=== PATIENT | male | born 1975 | race Caucasian/White ===

== ENCOUNTER → 2021-04-24 | Outpatient (CLI) | payer OTHER ==
[~2021-04-24] MED LIST: ALPR1 PO; AMLO5 PO; Ativan1 MG PO; CARV6.25 PO; CITA20 PO; CRUTCH3 USE; CYCL10 PO; Crutch1 EACH MISC; ERYT.5TO LEFTEYE; FLUT.05NI; HYDACE10B PO; HYDACE5 PO; HYDCHL25 PO; HYDPAM25 PO; IBUP800 PO; Indomethacin50 MG PO; Keflex500 MG PO; LISI20 PO; LITH300C PO; LORA.5 PO; LORA2 PO; LOSHYD100 PO; MELO7.5; METPRE4DP PO; Mobic7.5 MG PO; NAPR500 PO; NAPR500ERA PO; Naprosyn500 MG PO; Non-Aspirin Ex500 MG PO; Norco 10-325 T1 EACH PO; Norco 5-325 Ta1 EACH PO; OLAN5 PO; OXYACE7.5T PO; PRED20; SUMA25 PO; TELM20 PO; ZESTORETIC 20-121 EA; ZESTORETIC 20-251 EA PO; Zofran4 MG PO
[2021-04-24 15:54] LABS: BASOPHILS ABSOLUTE AUTO 0.09 K/mm3 (0.00-0.23); BASOPHILS PERCENT AUTO 1 % (0-2); EOSINOPHILS PERCENT AUTO 2 % (0-6); Hematocrit 45.4 % (37.0-53.0); Hemoglobin 15.1 g/dL (13.5-17.5); IMMATURE GRAN ABSOLUTE AUTO 0.05 K/mm3 (0.00-0.10); IMMATURE GRAN PERCENT AUTO 0 % (0-1); LYMPHOCYTES ABSOLUTE AUTO 1.88 K/mm3 (0.84-5.20); LYMPHOCYTES PERCENT AUTO 15 % (21-46); MONOCYTES ABSOLUTE AUTO 0.74 K/mm3 (0.16-1.47); MONOCYTES PERCENT AUTO 6 % (4-13); Mean Corpuscular HGB 27.5 pg (26.0-34.0); Mean Corpuscular HGB Conc 33.3 g/dL (31.5-36.5); Mean Corpuscular Volume 83 fL (80-100); Mean Platelet Volume 10.7 fL (9.1-12.4); NEUTROPHILS ABSOLUTE AUTO 9.23 K/mm3 (1.96-9.15); NEUTROPHILS PERCENT AUTO 76 % (41-73); Platelet Count 216 K/mm3 (150-400); RDW Coefficient Variation 14.7 % (11.7-14.2); RDW Standard Deviation 44.2 fL (35.1-46.3); White Blood Cell Count 12.19 K/mm3 (4.00-11.30)
[2021-04-24 16:25] LABS: Albumin, Blood 2.5 g/dL (3.4-5.0); Albumin/Globulin Ratio 0.8 (0.8-1.8); Bilirubin, Total 0.9 mg/dL (0.1-1.0); Bun/Creatinine Ratio 17.8 (12.0-20.0); Calcium, Blood 8.6 mg/dL (8.5-10.1); Creatinine, Blood 1.57 mg/dL (0.60-1.20); Globulin, Blood 3.1 g/dL (2.2-4.0); Potassium, Blood 4.3 mmol/L (3.5-5.5); Total Protein, Blood 5.6 g/dL (6.4-8.2); Troponin I 0.147 ng/mL (0.000-0.040)
[2021-04-24 16:32] LABS: International Normalized Ratio 1.07; Prothrombin Time Results 11.2 Sec (9.7-11.5)
== END | disposition home or self-care (01) ==
LOC: LAB 15:48 → LAB SHORT 15:48
PROVIDERS: Physician Assistant Medical
DX: R06.00 Dyspnea, unspecified (principal)
CPT/HCPCS: 80053; 83880; 84484; 85025; 85379; 85610; 85651; 85730; 86140

== ENCOUNTER 2021-07-05 22:04 | Inpatient (IN) | payer OTHER ==
[~2021-07-05] VITALS: Ht 170.2 cm; Wt 90.7 kg
[2021-07-05 22:39] LABS: BASOPHILS ABSOLUTE AUTO 0.11 K/mm3 (0.00-0.23); BASOPHILS PERCENT AUTO 1 % (0-2); EOSINOPHILS ABSOLUTE AUTO 0.11 K/mm3 (0.00-0.68); EOSINOPHILS PERCENT AUTO 1 % (0-6); Hematocrit 46.9 % (37.0-53.0); Hemoglobin 15.5 g/dL (13.5-17.5); IMMATURE GRAN ABSOLUTE AUTO 0.08 K/mm3 (0.00-0.10); IMMATURE GRAN PERCENT AUTO 1 % (0-1); LYMPHOCYTES ABSOLUTE AUTO 2.29 K/mm3 (0.84-5.20); LYMPHOCYTES PERCENT AUTO 15 % (21-46); MONOCYTES ABSOLUTE AUTO 0.96 K/mm3 (0.16-1.47); MONOCYTES PERCENT AUTO 6 % (4-13); Mean Corpuscular HGB 26.8 pg (26.0-34.0); Mean Corpuscular Volume 81 fL (80-100); Mean Platelet Volume 10.9 fL (9.1-12.4); NEUTROPHILS ABSOLUTE AUTO 11.69 K/mm3 (1.96-9.15); NEUTROPHILS PERCENT AUTO 77 % (41-73); Platelet Count 131 K/mm3 (150-400); RDW Coefficient Variation 22.1 % (11.7-14.2); RDW Standard Deviation 61.6 fL (35.1-46.3); Red Blood Cell Count 5.78 M/mm3 (4.30-5.90); White Blood Cell Count 15.24 K/mm3 (4.00-11.30)
[2021-07-05 22:59] LABS: Albumin, Blood 2.5 g/dL (3.4-5.0); Albumin/Globulin Ratio 0.7 (0.8-1.8); Bilirubin, Total 2.1 mg/dL (0.1-1.0); Calcium, Blood 8.9 mg/dL (8.5-10.1); Creatinine, Blood 1.58 mg/dL (0.60-1.20); Globulin, Blood 3.5 g/dL (2.2-4.0); Potassium, Blood 3.9 mmol/L (3.5-5.5); Troponin I 0.072 ng/mL (0.000-0.040)
[2021-07-05] MEDS ORDERED: COREG25 MG PO (23:24)
[2021-07-05] MEDS ORDERED: JANTOVEN2.5 M2 PO (23:25)
[2021-07-05] MEDS ORDERED: SPIRONOLACTONE50 MG PO (23:25)
[2021-07-05] MEDS ORDERED: FUROSEMIDE40 MG PO (23:25)
[2021-07-06 00:38] LABS: International Normalized Ratio 1.15
[2021-07-06 06:38] LABS: BASOPHILS PERCENT AUTO 1 % (0-2); EOSINOPHILS ABSOLUTE AUTO 0.15 K/mm3 (0.00-0.68); EOSINOPHILS PERCENT AUTO 1 % (0-6); Hematocrit 46.9 % (37.0-53.0); Hemoglobin 15.5 g/dL (13.5-17.5); IMMATURE GRAN ABSOLUTE AUTO 0.07 K/mm3 (0.00-0.10); IMMATURE GRAN PERCENT AUTO 1 % (0-1); LYMPHOCYTES ABSOLUTE AUTO 2.38 K/mm3 (0.84-5.20); LYMPHOCYTES PERCENT AUTO 15 % (21-46); MONOCYTES ABSOLUTE AUTO 0.93 K/mm3 (0.16-1.47); MONOCYTES PERCENT AUTO 6 % (4-13); Mean Corpuscular HGB 27.1 pg (26.0-34.0); Mean Corpuscular Volume 82 fL (80-100); Mean Platelet Volume 10.6 fL (9.1-12.4); NEUTROPHILS PERCENT AUTO 77 % (41-73); Platelet Count 125 K/mm3 (150-400); RDW Coefficient Variation 22.2 % (11.7-14.2); RDW Standard Deviation 63.7 fL (35.1-46.3); Red Blood Cell Count 5.72 M/mm3 (4.30-5.90); White Blood Cell Count 15.53 K/mm3 (4.00-11.30)
--- NOTE | 2021-07-06 06:47 | NUR ---
SHIFT SUMMARY PT IS A&O X4, REPORTS HE IS HOMELESS AND 6 WEEKS AGO WAS DIAGNOSED WITH SYSTOLIC CHF. HE HAS NOT BEEN TAKING HIS MEDICATION X 2 WEEKS, STATES HE HAD TROUBLE KEEPING HIS F/U APPTS. HE IS ROOM AIR. BLOOD PRESSURES HYPERTENSIVE, ADMINISTERED HYDRALAZINE AND METOPROLOL PRN. PT AMBULATES IN ROOM, USING URINAL AT BEDSIDE. HE USES A WALKING STICK AT HOME. REPORTS DECREASED APPETITE X6 DAYS. WILL CONTINUE TO MONITOR AND GIVE REPORT TO DAY NURSE.
[2021-07-06 06:55] LABS: Albumin, Blood 2.4 g/dL (3.4-5.0); Albumin/Globulin Ratio 0.7 (0.8-1.8); Bilirubin, Total 1.7 mg/dL (0.1-1.0); Bun/Creatinine Ratio 19.9 (12.0-20.0); Calcium, Blood 8.7 mg/dL (8.5-10.1); Creatinine, Blood 1.56 mg/dL (0.60-1.20); Globulin, Blood 3.5 g/dL (2.2-4.0); Potassium, Blood 3.8 mmol/L (3.5-5.5); Total Protein, Blood 5.9 g/dL (6.4-8.2)
[2021-07-06 07:08] LABS: Troponin I 0.075 ng/mL (0.000-0.040)
--- NOTE | 2021-07-06 12:38 | NUR ---
ASSUMED CARE: PT TRANSFERRED TO ROOM 304. AWAITING TELE AND HEPARIN GTT. COORDINATER AT BEDSIDE DOING ADMISSION PAPERWORK. PT DENIES NEEDS OR CONCERNS AT THIS TIME.
[2021-07-06 15:25] LABS: Troponin I 0.045 ng/mL (0.000-0.040)
--- NOTE | 2021-07-06 18:33 | NUR ---
SHIFT SUMMARY: PT WITH HEPARIN GTT RUNNING TO BRIDGE FOR COUMADIN TO GET TO THERAPEUTIC LEVELS. PT BEING MEDICALLY MANAGED FOR CHF DUE TO UNAVAILABILITY OF MEDS IN HOME SETTING. PT DENIES NEEDS OR CONCERNS AT THIS TIME.
[2021-07-06 21:58] LABS: U Amphetamine Screen Not Detected; U Barbituate Screen Not Detected; U Benzodiazapine Screen Not Detected; U Buprenorphine Screen Not Detected; U Cannabinoids Screen DETECTED; U Cocaine Screen Not Detected; U Methadone Screen Not Detected; U Methamphetamine Screen Not Detected; U Opiates Screen Not Detected; U Oxycodone Screen Not Detected; U Phencyclidine Screen Not Detected; U Propoxyphene Screen Not Detected
[2021-07-07 05:04] LABS: BASOPHILS ABSOLUTE AUTO 0.09 K/mm3 (0.00-0.23); BASOPHILS PERCENT AUTO 1 % (0-2); EOSINOPHILS ABSOLUTE AUTO 0.34 K/mm3 (0.00-0.68); EOSINOPHILS PERCENT AUTO 3 % (0-6); Hematocrit 43.9 % (37.0-53.0); IMMATURE GRAN ABSOLUTE AUTO 0.03 K/mm3 (0.00-0.10); IMMATURE GRAN PERCENT AUTO 0 % (0-1); LYMPHOCYTES ABSOLUTE AUTO 2.25 K/mm3 (0.84-5.20); LYMPHOCYTES PERCENT AUTO 21 % (21-46); MONOCYTES ABSOLUTE AUTO 0.81 K/mm3 (0.16-1.47); MONOCYTES PERCENT AUTO 7 % (4-13); Mean Corpuscular HGB 26.7 pg (26.0-34.0); Mean Corpuscular HGB Conc 31.9 g/dL (31.5-36.5); Mean Corpuscular Volume 84 fL (80-100); Mean Platelet Volume 11.8 fL (9.1-12.4); NEUTROPHILS ABSOLUTE AUTO 7.46 K/mm3 (1.96-9.15); NEUTROPHILS PERCENT AUTO 68 % (41-73); Platelet Count 114 K/mm3 (150-400); RDW Coefficient Variation 21.8 % (11.7-14.2); RDW Standard Deviation 65.3 fL (35.1-46.3); Red Blood Cell Count 5.25 M/mm3 (4.30-5.90); White Blood Cell Count 10.98 K/mm3 (4.00-11.30)
[2021-07-07 05:18] LABS: International Normalized Ratio 1.13; Prothrombin Time Results 11.8 Sec (9.7-11.5)
--- NOTE | 2021-07-07 07:26 | NUR ---
PATIENT IS A&OX4, PLEASANT AND COOPERATIVE WITH HIS CARE. TOLERATING HEPARIN GTT WITHOUT DIFFICULTY CURRENTLY RUNNING AT 20 UNITS/KG/HR. TERRENCE IS INDEPENDENT IN THE ROOM, AND DEFINATELY GETS SOB WITH MINIMAL ACTIVITY OR CONVERSATION. PATIENT SPOKE OF A YOUNG FAMILY HX OF CARDIAC PROBLEMS.
--- NOTE | 2021-07-07 15:50 | NUR ---
HEPARIN STOPPED APPROX 1530 PER PHA
--- NOTE | 2021-07-07 18:21 | NUR ---
DR RECEIVED NOTES FROM [facility] TODAY. DID CHANGE HEPARIN DRIP FOR ARGATROBAN DRIP. VERIFIED WIHT ADVERTISING DESIGNER RATE OF 6 ML/HR. CURRENTLY ARIES. WILL PASS INFO TO DUANE REYES. DID START COUMADIN TODAY. PT RESTING T/O DAY. BED IN LOW POSITION, CALL LITE IN REACH, CALLS APPORP
[2021-07-08 04:43] LABS: International Normalized Ratio 1.54; Prothrombin Time Results 15.7 Sec (9.7-11.5)
--- NOTE | 2021-07-08 05:15 | NUR ---
CHANGE CONSULTANT SUMMARY PT ALERT AND ORIENTED X3. HAS BEEN SLEEPING MOST OF THE SHIFT BUT WAKES TO HIS NAME. COOPERATIVE WITH CARE. INDEPENDENT IN ROOM. ARGATROBAN INFUSION RUNNING THROUGHOUT THE SHIFT. PT WAS SINUS RHYTHM AT 82 ON TELEMETRY. NO COMPLAINTS OF PAIN. LUNG SOUNDS SOMEWHAT DIMINISHED IN THE BASES. NO SOB. NO OTHER COMPLAINTS THIS SHIFT.
[2021-07-08 08:46] LABS: Bun/Creatinine Ratio 22.4 (12.0-20.0); Calcium, Blood 8.8 mg/dL (8.5-10.1); Creatinine, Blood 1.56 mg/dL (0.60-1.20)
--- NOTE | 2021-07-08 11:30 | NUR ---
PT PLEASANT BUT SLEEPY THIS AM. MOSTLY SLEEPING ALL AM. H/R REG, NO MURMER NOTED. PER TELE NSR AT 65. LUNGS CLEAR, RESP EASY, UNLABORED. ON R.A. BT X4 LAST BM YEST PER PT. VIODS PER URINAL AND IN TO BATHROOM. BED IN LOW POSITION, CALL LITE IN REACH, CALLS APPROP
--- NOTE | 2021-07-08 17:40 | NUR ---
PT SLEEPING MOST OF DAY. AWAKENS EASILY, ASKS FOR FOOD MOST TIMES. PHA IS CONTINUEING DRIP AT 1 MCG/KG/HR, THIS EQUATES TO 6ML/HR PER PHA. WE ARE WAITING FOR PT/INR TO REACH ACCEPTABLE LEVELS PRIOR TO DISCHARGE. NO OTHER CONCERNS NOTED TODAY. BED IN LOW POSITION, CALL LITE IN REACH, CALLS APPROP
[2021-07-09 04:18] LABS: Hematocrit 45.3 % (37.0-53.0); Hemoglobin 14.5 g/dL (13.5-17.5); Mean Corpuscular HGB 27.1 pg (26.0-34.0); Mean Corpuscular Volume 85 fL (80-100); Mean Platelet Volume 11.2 fL (9.1-12.4); Platelet Count 146 K/mm3 (150-400); RDW Coefficient Variation 21.4 % (11.7-14.2); RDW Standard Deviation 65.3 fL (35.1-46.3); Red Blood Cell Count 5.36 M/mm3 (4.30-5.90); White Blood Cell Count 9.08 K/mm3 (4.00-11.30)
[2021-07-09 04:34] LABS: Bun/Creatinine Ratio 22.6 (12.0-20.0); Calcium, Blood 8.6 mg/dL (8.5-10.1); Creatinine, Blood 1.46 mg/dL (0.60-1.20); Potassium, Blood 4.3 mmol/L (3.5-5.5)
[2021-07-09 04:35] LABS: International Normalized Ratio 1.59; Prothrombin Time Results 16.2 Sec (9.7-11.5)
--- NOTE | 2021-07-09 06:15 | NUR ---
SYSTEM TECHNOLOGIST SUMMARY PT CONTINUING TO RECEIVE ARGATROBAN IV AT 6 ML/HR. PT MORE ALERT LAST NIGHT AND REQUESTED SHOWER. PT WAS GIVEN SHOWER CAP TO CLEANSE DUE TO INFUSION - PT REPORTED FEELING MUCH BETTER. HE SLEPT THE REST OF THE SHIFT. NO COMPLAINTS.
--- NOTE | 2021-07-09 17:53 | NUR ---
SHIFT SUMMARY STOCK DIGGER CALLED TO REPORT ST ELEVATION IN THE V LEAD BY 1/2 BOX AT 1330. THIS WAS RELAYED TO DR. SKINNER. EKG ORDER OBTAINED AND 2 SERIEL TROPONINS PLACED. EKG RESULTS READ BACK TO DR. SKINNER AFTER COMPLETED. FIRST TROPONIN ALSO RELAYED TO DR. SKINNER OF 0.054. NO NEW ORDERS AT THAT TIME. SECOND TROPONIN TO BE DRAWN THIS EVENING. ARGATROBAN GTT REMAINS IN PLACE. RATE UNCHANGED THIS SHIFT PER PHARMACY CONSULT. COUMADIN TO BE RESTARTED TONIGHT. PT DENIED CP/PRESSURE T/O SHIFT. SLEPT MOST THE DAY. PT STATES THIS IS NORMAL FOR HIM. VS REVIEWED. CALL LIGHT IN REACH. NO OTHER ACUTE CHANGES IN ASSESSMENT AT THIS TIME.
[2021-07-10 05:00] LABS: International Normalized Ratio 1.77; Prothrombin Time Results 17.9 Sec (9.7-11.5)
--- NOTE | 2021-07-10 05:06 | NUR ---
SHIFT SUMMARY 46 YR M ADMITTED ON 07/06/21 FOR ACUTE CHF EXACERBATION. FULL CODE. PT IS INDEPENDANT IN THE ROOM AND CONTINENT. HE EXPRESSED TO THIS NURSE THAT HE WANTS TO GO HOME BECAUSE HE HAS BEEN HERE FOR 6 DAYS AND HE STATES THAT IT IS STARTING TO AFFECT HIS MENTAL HEALTH. PER SHIFT REPORT, PT IS HOMELESS AND CASE MANAGEMENT IS LOOKING INTO A PLACE FOR HIM TO STAY. PT IS ALERT AND ORIENTED AND IS COOPERATIVE. LAST NIGHT PT ASKED FOR MELATONIN BECAUSE HE STATES THAT HE CANNOT SLEEP AT NIGHT BECAUSE HE SLEEPS ALL DAY.
[2021-07-10 05:12] LABS: Bun/Creatinine Ratio 23.2 (12.0-20.0); Calcium, Blood 8.6 mg/dL (8.5-10.1); Creatinine, Blood 1.42 mg/dL (0.60-1.20); Potassium, Blood 4.4 mmol/L (3.5-5.5)
--- NOTE | 2021-07-10 16:21 | NUR ---
SHIFT SUMMARY AA0X4 PT DENIES CHEST PAIN DURING SHIFT. FRUSTRATED AT TIMES HE WISHES TO GO HOME. TOLERATING PO WELL. IND IN ROOM. CALLS APPROPRIATLY IF HE NEEDS ANYTHING. SR TODAY PER TELE.
--- NOTE | 2021-07-10 18:09 | NUR ---
AMA PT LEFT AMA AT 1800. IV REMOVED PRIOR TO DISCHARGE. ASKED PT IF HE WOULD ALLOW ME TO SPEAK WITH THE PHYSICIAN PRIOR TO DISCHARGE AND HE STATED NO. TOOK HIS COUMADIN. HE PLANS TO FOLLOW UP WITH [facility] IN THE MORNING AND CONTINUE TAKING HIS MEDS. EDUCATED HIM ON THE RISKS OF TAKING THESE BLOOD THINNERS AND HIS INCREASED RISK FOR BLEEDING. I SPOKE TO HIM ABOUT HIS RISK OF CLOTS AND . PT REPORTED UNDERSTANDING AND SIGNED HIS AMA FORM. NOTIFIED DR. MCRAE. IV REMOVED PRIOR TO DISCHARGE.
== END 2021-07-10 18:02 | disposition left against medical advice (07) | DRG 291 ==
LOC: ER 22:04 → ERHOLD 22:05 → MEDS 07-06 12:25
PROVIDERS: Hospitalist; Physician Assistant; Student in an Organized Health Care Education/Training Program; ADMIT Internal Medicine
PROC: 8E0ZXY6 Isolation (ICD-10-PCS; principal; 2021-07-09)
DX: I13.0 Hypertensive heart and chronic kidney disease with heart failure and stage 1 through stage 4 chronic kidney disease, or unspecified chronic kidney disease (principal); I50.23 Acute on chronic systolic (congestive) heart failure; I51.3 Intracardiac thrombosis, not elsewhere classified; R51.9 Headache, unspecified; D75.82 Heparin induced thrombocytopenia (HIT); R79.1 Abnormal coagulation profile; T45.515A Adverse effect of anticoagulants, initial encounter; D72.829 Elevated white blood cell count, unspecified; R77.8 Other specified abnormalities of plasma proteins; N18.31 Chronic kidney disease, stage 3a; F32.A Depression, unspecified; I42.7 Cardiomyopathy due to drug and external agent; F41.9 Anxiety disorder, unspecified; I25.2 Old myocardial infarction; F15.10 Other stimulant abuse, uncomplicated; G89.29 Other chronic pain; M25.561 Pain in right knee; Z28.21 Immunization not carried out because of patient refusal; Z59.00 Homelessness unspecified; Z88.6 Allergy status to analgesic agent; Z88.5 Allergy status to narcotic agent; Z88.8 Allergy status to other drugs, medicaments and biological substances; Z79.899 Other long term (current) drug therapy
CPT/HCPCS: 36415; 70450; 71046; 80048; 80053; 82550; 83880; 84484; 85025; 85027; 85610; 85730; 93005; 93010; 96374; 96375; 96376; 99285-25; A9270; G0378; J0360; J0883; J1644; J1650; J1940; J7050

== ENCOUNTER 2021-07-29 02:27 | Inpatient (IN) | payer OTHER ==
[~2021-07-29] VITALS: Ht 170.2 cm; Wt 91.2 kg
[~2021-07-29 02:27] MED LIST changes: +COREG25 MG PO; +FUROSEMIDE40 MG PO; +JANTOVEN2.5 M2 PO; +SPIRONOLACTONE50 MG PO
[2021-07-29 03:15] LABS: BASOPHILS ABSOLUTE AUTO 0.12 K/mm3 (0.00-0.23); BASOPHILS PERCENT AUTO 1 % (0-2); EOSINOPHILS ABSOLUTE AUTO 0.22 K/mm3 (0.00-0.68); EOSINOPHILS PERCENT AUTO 2 % (0-6); Hematocrit 44.1 % (37.0-53.0); Hemoglobin 14.5 g/dL (13.5-17.5); IMMATURE GRAN ABSOLUTE AUTO 0.03 K/mm3 (0.00-0.10); IMMATURE GRAN PERCENT AUTO 0 % (0-1); LYMPHOCYTES ABSOLUTE AUTO 2.47 K/mm3 (0.84-5.20); LYMPHOCYTES PERCENT AUTO 21 % (21-46); MONOCYTES ABSOLUTE AUTO 0.53 K/mm3 (0.16-1.47); MONOCYTES PERCENT AUTO 5 % (4-13); Mean Corpuscular HGB 27.5 pg (26.0-34.0); Mean Corpuscular HGB Conc 32.9 g/dL (31.5-36.5); Mean Corpuscular Volume 84 fL (80-100); Mean Platelet Volume 10.6 fL (9.1-12.4); NEUTROPHILS ABSOLUTE AUTO 8.35 K/mm3 (1.96-9.15); NEUTROPHILS PERCENT AUTO 71 % (41-73); Platelet Count 140 K/mm3 (150-400); RDW Coefficient Variation 18.7 % (11.7-14.2); RDW Standard Deviation 56.2 fL (35.1-46.3); Red Blood Cell Count 5.28 M/mm3 (4.30-5.90); White Blood Cell Count 11.72 K/mm3 (4.00-11.30)
[2021-07-29 03:34] LABS: Albumin, Blood 2.6 g/dL (3.4-5.0); Albumin/Globulin Ratio 0.7 (0.8-1.8); Bun/Creatinine Ratio 19.6 (12.0-20.0); Calcium, Blood 8.8 mg/dL (8.5-10.1); Creatinine, Blood 1.38 mg/dL (0.60-1.20); Globulin, Blood 3.5 g/dL (2.2-4.0); Total Protein, Blood 6.1 g/dL (6.4-8.2)
[2021-07-29 06:38] LABS: International Normalized Ratio 1.07; Prothrombin Time Results 11.2 Sec (9.7-11.5)
[2021-07-29 06:44] LABS: Influenza A, PCR NEGATIVE (NEGATIVE); Influenza B, PCR NEGATIVE (NEGATIVE); Resp Syncytial Virus, PCR NEGATIVE (NEGATIVE); SARS-Cov-2 (COVID-19) PCR, MMC NEGATIVE (NEGATIVE)
[2021-07-29] MEDS ORDERED: CARV3.125 (19:10)
--- NOTE | 2021-07-29 20:20 | NUR ---
ASSUMED CARE OF PATIENT AT APPROXIMATELY 1910 FROM PORTIA Munroe RN. PATIENT ALERT AND ORIENTED X4; SBA OUT OF BED DUE TO EPISODES OF DIZZINESS. PATIENT PREFERS TO SIT UP DUE TO SHORTNESS OF BREATH LYING DOWN. RECLINER PUT IN ROOM. PATIENT DENIES CP/PRESSURE, NUMBNESS, TINGLING, AND NAUSEA. PATIENT REPORTS HE GETS "LIGHTNING TINGLING" IN BACK OF HEAD FROM "BY MY BRAINST[place]". CONSENT SIGNED TO REQUEST RECORDS FROM [facility]. NSR ON TELE; OXYGEN SATURATION ABOVE 90% ON ROOM AIR. PIV INFUSING ARGATROBAN. USES URINAL BEDSIDE. REQUEST FREQUENT SNACKS.
[2021-07-30 00:48] LABS: Prothrombin Time Results 29.3 Sec (9.7-11.5)
--- NOTE | 2021-07-30 06:38 | NUR ---
PATIENT SLEPT ABOUT SIX HOURS LAST NIGHT. NO OTHER ACUTE CHANGES.
--- NOTE | 2021-07-30 09:29 | NUR ---
AM NOTE: PATIENT ALERT AND ORIENTED X4. NEURO WNL. ABLE TO MOVE ALL EXTREMITIES. IND TO RECLINER. SBA TO BATHROOM. ON ROOM AIR SATING WNL. LUNGS SOUNDING CLEAR AND DIM IN BASES. TELE SHOWING SINUS RHYTHM WITH HR 80-90'S. DENIES CHEST PAIN/PRESSURE. MINIMAL EDEMA IN BLE. DENIES ABDOMINAL PAIN/NAUSEA. USING URINAL AT BEDSIDE. SKIN C/DI. PATIENT HAVING A HARD TIME LAYING DOWN TO SLEEP. SLEEPING SITTING UP OR IN RECLINER. SMALL SCAB THAT IS HEALING ON LEFT ANKLE. CALL LIGHT IN REACH. SLEEPING AT THIS TIME. WILL CONTINUE TO MONITOR.
[2021-07-30 13:21] LABS: Hematocrit 47.7 % (37.0-53.0); Hemoglobin 15.1 g/dL (13.5-17.5)
[2021-07-30 13:37] LABS: Bun/Creatinine Ratio 15.3 (12.0-20.0); Calcium, Blood 8.7 mg/dL (8.5-10.1); Creatinine, Blood 1.44 mg/dL (0.60-1.20); Potassium, Blood 3.4 mmol/L (3.5-5.5)
--- NOTE | 2021-07-30 15:56 | NUR ---
UPDATE: DR. MARQUES IN TO SEE PATIENT. NEW ORDERS SEE EMAR. VITAL SIGNS REMAIN STABLE. DBP REMAINS ELEVATED. WILL CONTINUE TO MONITOR.
--- NOTE | 2021-07-30 18:11 | NUR ---
SHIFT SUMMARY: PATIENT REMAINS ALERT AND ORIENTED. NO ACUTE CHANGES. SEE PREVIOUS NOTE. REMAINS ON ROOM AIR. TELE SHOWING SINUS RHYTHM WITH HR 80'S. DENIES CHEST PAIN/PRESSURE. SLEEPING ON AND OFF. AGATROBAN GTT REMAINS AT 11.6 ML/HR AND 2MCG/KG/MIN, PER PHARMACY. CARDIOLOGY CONSULTED TODAY. ECHO COMPLETED. DENIES NEEDS AT THIS TIME. USING URINAL IND. WILL CONTINUE TO MONITOR AND REPORT OFF.
[2021-07-31 00:43] LABS: International Normalized Ratio 2.05; Prothrombin Time Results 20.5 Sec (9.7-11.5)
--- NOTE | 2021-07-31 05:27 | NUR ---
SHIFT SUMMARY PATIENT FOUND TO BE A PLESANT MAN WHO IS A&OX4 AND UP IND IN ROOM. BP ELEVATED BUT STABLE. NSR ON THE MONITOR IN THE 70'S. NO COMPLAINTS OF CHEST PAIN OR DIZZINESS. STRICT I/O'S WITH DIURESING AND GOOD OUPUT VOIDING PER URINAL. TOLERATING CARDIAC DIET WITHOUT ISSUE AND ASKS FOR SNACKS FREQUENTLY. AGATROBAN DRIP THERAPEUTIC AND RUNNING PER ORDER. NO ACUTE CONCERNS AT THIS TIME. WILL CONTINUE PLAN OF CARE UNTIL REPORT GIVEN TO LIZABETH REYES.
--- NOTE | 2021-07-31 10:13 | NUR ---
ASSUMED CARE OF PATIENT AT APPRXO 0900 FROM AMY MONCADA. AGREE WITH PREVIOUS CERTIFIED COURT/MEDICAL INTERPRETER. BP ELEVATED, MEDICATED THIS AM WITH SCHEDULE COREG AND LASIX. OTHER VSS. PT DENIES PAIN, CHEST PAIN/PRESSURE, SOB, NAUSEA, DIZZINESS AND NUMB/TINGLING. OTHER VSS. NO OTHER ACUTE CHANGES NOTED. WILL CONTINUE TO MONITOR.
[2021-07-31 13:47] LABS: Mean Platelet Volume 10.7 fL (9.1-12.4); Platelet Count 173 K/mm3 (150-400)
--- NOTE | 2021-07-31 16:47 | NUR ---
SHIFT SUMMARY PT APPEARS TO BE SLEEPING INTERMITTENTLY T/O SHIFT. NO S/SX OF DISTRESS NOTED T/O SHIFT. BP ELEVATED THIS AM, TRENDING DOWN, OTHER VSS. ARGATROBAN GTT PER PHARMACY ORDERS. NO OTHER ACUTE CHANGES NOTED. WILL CONTINUE TO MONITOR UNITL REPORT GIVEN TO ONCOMING RN.
[2021-08-01 01:22] LABS: International Normalized Ratio 2.19; Prothrombin Time Results 21.8 Sec (9.7-11.5)
--- NOTE | 2021-08-01 05:31 | NUR ---
SHIFT SUMMARY ASSUMED CARE OF PT AT 1900. PT IS A/OX4. HEART SOUNDS REGULAR, LUNG SOUNDS DIMINISHED. PT GIVEN EKG DUE TO ST ELEVATION ON TELEMETRY. EKG DISCUSSED WITH CHARGE NURSE, TELE LINES CHANGED AND THERE WAS NO ST ELEVATION AFTER THIS. PT TOOK A SHOWER THIS EVENING. PT WAS INDEPENDNT WITH URINAL. PT WONDERING HOW LONG HE WILL STAY AT THE HOSPITAL.
--- NOTE | 2021-08-01 08:55 | NUR ---
AM NOTE ASSUMED CARE OF PATIENT AT APPROX 0700. PT SITTING ON SIDE OF BED. REPORTS NOTE SLEEPING WELL THE NIGHT BEFORE. PT A&Ox4; COOPERATIVE WITH CARE. PT DENIES PAIN, CHEST PAIN, SOB, NAUSEA, DIZZINESS AND NUMB/TINGLING. TRACE EDEMA NOTED TO BLE AND RUE. SPO2 >90% ON RA. TELE SINUS, BP ELEVATED THIS AM, MEDICATED WITH SCHEDULED COREG AND LOSARTAN. ABD SOFT, NONTEND, HYPOACTIVE BT T/O; PT REPORTS LAST BM 07/31 AND CURRENTLY PASSING GAS. NO S/Sx OF DISTRESS NOTED. OTHER VSS. NO OTHER ACUTE CHANGES. WILL COTNINUE TO MONITOR.
[2021-08-01] MEDS ORDERED: CARV6.25 PO (12:17)
[2021-08-01] MEDS ORDERED: LOSA25 PO (12:18)
[2021-08-01] MEDS ORDERED: NITR.4SL SL (12:21)
[2021-08-01] MEDS ORDERED: XARELTO20 MG PO ×2 (12:23)
[2021-08-01] MEDS ORDERED: FURO40 PO (12:24)
[2021-08-01] MEDS ORDERED: HYDR10 PO (12:25)
--- NOTE | 2021-08-01 14:10 | NUR ---
DISCHARGE SUMMARY NO ACUTE CHANGES T/O SHIFT. PT TRANSITIONED FROM ARGATROBAN GTT AND COUMADIN TO XARELTO THIS AFTERNOON. NO S/SX DISTRESS NOTED T/O SHIFT. ELEVATED BP TRENDING DOWN. OTHER VSS. PT EDCUATED ON DISCHARGE INSTRUCTIONS, FOLLOW UP APPOINTMENTS AND MEDICATIONS. PT EDCUATED ON IMPORTANCE OF MEDICATION COMPLAIANCE AND THE RISKS OF NON COMPLIANCE. PRESCRIPTION CALLED TO [facility] ON [address], PER PT REQUEST. DISCUSSED FOLLOW UP APPOINTMENTS, INSTUCTED PT TO CALL THE OFFICE IF HE WAS UNABLE TO MAKE AN APPOINTMENT. DR LEIVA AT [facility] FOR PCP FOLLOW UP. APPOINTMENTS FOR PCP AND CARDIOLOGY MADE FOR PATIENT. PT LEFT VIA WHEELCHAIR.
== END 2021-08-01 13:30 | disposition home or self-care (01) | DRG 291 ==
LOC: ER 02:27 → ERHOLD 02:28 → PCU 02:28
PROVIDERS: Internal Medicine; Student in an Organized Health Care Education/Training Program; ADMIT Family Medicine
DX: I13.0 Hypertensive heart and chronic kidney disease with heart failure and stage 1 through stage 4 chronic kidney disease, or unspecified chronic kidney disease (principal); I50.23 Acute on chronic systolic (congestive) heart failure; Z20.822 Contact with and (suspected) exposure to COVID-19; Z59.00 Homelessness unspecified; Z91.14 Patient's other noncompliance with medication regimen; F15.10 Other stimulant abuse, uncomplicated; I51.3 Intracardiac thrombosis, not elsewhere classified; G89.29 Other chronic pain; F41.8 Other specified anxiety disorders; D69.6 Thrombocytopenia, unspecified; R00.0 Tachycardia, unspecified; N18.31 Chronic kidney disease, stage 3a; I42.7 Cardiomyopathy due to drug and external agent; T43.625A Adverse effect of amphetamines, initial encounter; F15.11 Other stimulant abuse, in remission; M25.561 Pain in right knee; Z88.6 Allergy status to analgesic agent; Z88.8 Allergy status to other drugs, medicaments and biological substances; Z79.899 Other long term (current) drug therapy
CPT/HCPCS: 0241U; 36415; 71045; 80048; 80053; 83880; 84145; 84484; 85014; 85018; 85025; 85049; 85610; 85730; 93005; 93010; 96374; 96376; 99285-25; A9270; C8929; G0378; J0883; J1940; J7050; Q9957

== ENCOUNTER 2023-03-26 22:19 | Emergency (ER) | payer OTHER ==
[~2023-03-26] VITALS: Ht 170.2 cm; Wt 101.2 kg
[~2023-03-26 22:19] MED LIST changes: +CARV3.125; +FURO40 PO; +HYDR10 PO; +LOSA25 PO; +NITR.4SL SL; +XARELTO20 MG PO
[2023-03-26 22:48] LABS: BASOPHILS ABSOLUTE AUTO 0.09 K/mm3 (0.00-0.23); BASOPHILS PERCENT AUTO 1 % (0-2); EOSINOPHILS ABSOLUTE AUTO 0.16 K/mm3 (0.00-0.68); EOSINOPHILS PERCENT AUTO 1 % (0-6); Hematocrit 43.9 % (37.0-53.0); Hemoglobin 14.4 g/dL (13.5-17.5); IMMATURE GRAN ABSOLUTE AUTO 0.03 K/mm3 (0.00-0.10); IMMATURE GRAN PERCENT AUTO 0 % (0-1); LYMPHOCYTES ABSOLUTE AUTO 2.24 K/mm3 (0.84-5.20); LYMPHOCYTES PERCENT AUTO 16 % (21-46); MONOCYTES ABSOLUTE AUTO 0.77 K/mm3 (0.16-1.47); MONOCYTES PERCENT AUTO 6 % (4-13); Mean Corpuscular HGB 28.3 pg (26.0-34.0); Mean Corpuscular HGB Conc 32.8 g/dL (31.5-36.5); Mean Corpuscular Volume 86 fL (80-100); Mean Platelet Volume 10.5 fL (9.1-12.4); NEUTROPHILS ABSOLUTE AUTO 10.52 K/mm3 (1.96-9.15); NEUTROPHILS PERCENT AUTO 76 % (41-73); Platelet Count 205 K/mm3 (150-400); RDW Standard Deviation 47.2 fL (35.1-46.3); Red Blood Cell Count 5.08 M/mm3 (4.30-5.90); White Blood Cell Count 13.81 K/mm3 (4.00-11.30)
[2023-03-26 23:08] LABS: Albumin, Blood 3.3 g/dL (3.4-5.0); Albumin/Globulin Ratio 0.9 (0.8-1.8); Bilirubin, Total 1.7 mg/dL (0.1-1.0); Bun/Creatinine Ratio 14.3 (12.0-20.0); Calcium, Blood 8.8 mg/dL (8.5-10.1); Creatinine, Blood 1.54 mg/dL (0.60-1.20); Globulin, Blood 3.7 g/dL (2.2-4.0); Potassium, Blood 3.9 mmol/L (3.5-5.5)
[2023-03-26 23:34] LABS: International Normalized Ratio 1.02; Prothrombin Time Results 10.7 Sec (9.7-11.5)
[2023-03-27 00:07] LABS: Phosphorus, Blood 2.9 mg/dL (2.5-4.9); Thyroid Stimulating Hormone 3.04 uIU/mL (0.360-4.800)
[2023-03-27 04:32] VITALS: BP 148/91
== END 2023-03-27 04:32 | disposition home or self-care (01) ==
LOC: ER 22:19
PROVIDERS: Emergency Medicine
DX: I26.99 Other pulmonary embolism without acute cor pulmonale (principal); I11.0 Hypertensive heart disease with heart failure; I50.9 Heart failure, unspecified
CPT/HCPCS: 71046; 71260; 80053; 83690; 83735; 83880; 84100; 84443; 84484; 85025; 85520; 85610; 85730; 93005; 93010; 96365; 96366; 96375; 96376; 99285-25; A9270; J0360; J1644; J7030; Q9967

== ENCOUNTER 2023-03-28 19:20 | Inpatient (IN) | payer OTHER ==
[~2023-03-28] VITALS: Ht 170.2 cm; Wt 97.9 kg
[2023-03-28 19:50] LABS: BASOPHILS ABSOLUTE AUTO 0.05 K/mm3 (0.00-0.23); BASOPHILS PERCENT AUTO 0 % (0-2); EOSINOPHILS ABSOLUTE AUTO 0.01 K/mm3 (0.00-0.68); EOSINOPHILS PERCENT AUTO 0 % (0-6); Hematocrit 40.7 % (37.0-53.0); Hemoglobin 13.9 g/dL (13.5-17.5); IMMATURE GRAN ABSOLUTE AUTO 0.07 K/mm3 (0.00-0.10); IMMATURE GRAN PERCENT AUTO 0 % (0-1); LYMPHOCYTES ABSOLUTE AUTO 1.59 K/mm3 (0.84-5.20); LYMPHOCYTES PERCENT AUTO 9 % (21-46); MONOCYTES ABSOLUTE AUTO 0.96 K/mm3 (0.16-1.47); MONOCYTES PERCENT AUTO 6 % (4-13); Mean Corpuscular HGB 28.9 pg (26.0-34.0); Mean Corpuscular HGB Conc 34.2 g/dL (31.5-36.5); Mean Corpuscular Volume 85 fL (80-100); Mean Platelet Volume 10.6 fL (9.1-12.4); NEUTROPHILS ABSOLUTE AUTO 14.22 K/mm3 (1.96-9.15); NEUTROPHILS PERCENT AUTO 84 % (41-73); Platelet Count 208 K/mm3 (150-400); RDW Coefficient Variation 15.4 % (11.7-14.2); Red Blood Cell Count 4.81 M/mm3 (4.30-5.90)
[2023-03-28 20:05] LABS: International Normalized Ratio 1.14; Prothrombin Time Results 11.9 Sec (9.7-11.5)
[2023-03-28 20:18] LABS: Albumin, Blood 3.1 g/dL (3.4-5.0); Albumin/Globulin Ratio 0.8 (0.8-1.8); Bun/Creatinine Ratio 16.7 (12.0-20.0); Calcium, Blood 9.1 mg/dL (8.5-10.1); Creatinine, Blood 1.68 mg/dL (0.60-1.20); Globulin, Blood 3.7 g/dL (2.2-4.0); Potassium, Blood 4.7 mmol/L (3.5-5.5); Total Protein, Blood 6.8 g/dL (6.4-8.2)
[2023-03-29] VITALS (9 sets, daily range): BP systolic 126–156; BP diastolic 82–111
--- NOTE | 2023-03-29 01:34 | NUR ---
ARRIVAL TO PCU patient arrived to pcu at 0030. patient transfered to pcu bed with minimal assist. patient is alert and oriented. patient is stating he is very hot and having difficulty breathing and chest tightness. patient received one nitro and relieved chest tightness. patient still having difficulty breathing. this rn educated the patient on taking deep breathes and to slow breathing down. patient on 3l nc with spo2 >95%. patient is febrile, see vital signs. rectal probe in place due to unable to get a good reading temporal, oral or axillary. patient is diaphortic and clammy. ice has been applied to help cool core temperature. admit complete. plan of care is up to date
[2023-03-29 03:42] LABS: Hematocrit 40.2 % (37.0-53.0); Hemoglobin 13.3 g/dL (13.5-17.5); Mean Corpuscular HGB 28.4 pg (26.0-34.0); Mean Corpuscular HGB Conc 33.1 g/dL (31.5-36.5); Mean Corpuscular Volume 86 fL (80-100); Mean Platelet Volume 10.4 fL (9.1-12.4); NRBC ABSOLUTE 0.07 K/mm3 (0.00-0.02); NRBC Auto 0.5 /100 WBC (0.0-0.2); Platelet Count 194 K/mm3 (150-400); RDW Coefficient Variation 15.7 % (11.7-14.2); RDW Standard Deviation 48.5 fL (35.1-46.3); Red Blood Cell Count 4.68 M/mm3 (4.30-5.90); White Blood Cell Count 15.09 K/mm3 (4.00-11.30)
[2023-03-29 04:33] LABS: Bun/Creatinine Ratio 15.6 (12.0-20.0); Calcium, Blood 8.4 mg/dL (8.5-10.1); Creatinine, Blood 1.92 mg/dL (0.60-1.20); Potassium, Blood 5.6 mmol/L (3.5-5.5)
--- NOTE | 2023-03-29 05:56 | NUR ---
shift summary ferbrile still. neuro remains unchanged. no acute changes. plan of care up to date.
[2023-03-29 12:08] LABS: U Amphetamine Screen DETECTED; U Barbituate Screen Not Detected; U Benzodiazapine Screen Not Detected; U Buprenorphine Screen Not Detected; U Cannabinoids Screen DETECTED; U Cocaine Screen Not Detected; U Methadone Screen Not Detected; U Methamphetamine Screen DETECTED; U Opiates Screen Not Detected; U Oxycodone Screen Not Detected; U Phencyclidine Screen Not Detected; U Propoxyphene Screen Not Detected
--- NOTE | 2023-03-29 12:29 | NUR ---
PT WITH INTERMITTENT ST ELEVATION THAT WAS AN INCREASE OF 0.08, DR CALZADA WAS CALLED FOR REPEAT EKG. BP IS ELEVATED, PT HAS NO CHEST PAIN, HE IS RESTING WELL IN BED DURING THIS EVENT.
--- NOTE | 2023-03-29 17:09 | NUR ---
PT HAS BEEN SLEEPING T/O MOST OF THE DAY, NADN. HE DID HAVE SOME HTN THIS AFTERNOON WHICH RESOLVED WITHOUT INTERVENTION. HE REPORTS IMPROVEMENT IN BREATHING, DENIES CP. HE CONTINUES WITH TELE MONITORING, BBB c PAC NOTED WITH RATE IN THE 90s. VSS. NADN. A/O X4. SKIN PWD AND INTACT. TEMPERATURE DID COME DOWN TO 99.3 TODAY, TYLENOL WAS NOT VERY EFFECTIVE FOR CONTROLLING FEVER. HE WAS MADE MEDICAL STATUS DURING THE DAY TODAY, HE REMAINS ON TELE.
[2023-03-29 17:29] LABS: BASOPHILS ABSOLUTE AUTO 0.05 K/mm3 (0.00-0.23); BASOPHILS PERCENT AUTO 0 % (0-2); EOSINOPHILS PERCENT AUTO 2 % (0-6); Hematocrit 38.3 % (37.0-53.0); Hemoglobin 12.6 g/dL (13.5-17.5); IMMATURE GRAN ABSOLUTE AUTO 0.05 K/mm3 (0.00-0.10); IMMATURE GRAN PERCENT AUTO 0 % (0-1); LYMPHOCYTES PERCENT AUTO 16 % (21-46); MONOCYTES ABSOLUTE AUTO 0.88 K/mm3 (0.16-1.47); MONOCYTES PERCENT AUTO 7 % (4-13); Mean Corpuscular HGB 28.8 pg (26.0-34.0); Mean Corpuscular HGB Conc 32.9 g/dL (31.5-36.5); Mean Corpuscular Volume 88 fL (80-100); Mean Platelet Volume 10.6 fL (9.1-12.4); NEUTROPHILS PERCENT AUTO 74 % (41-73); NRBC ABSOLUTE 0.03 K/mm3 (0.00-0.02); NRBC Auto 0.2 /100 WBC (0.0-0.2); Platelet Count 193 K/mm3 (150-400); RDW Coefficient Variation 15.8 % (11.7-14.2); RDW Standard Deviation 49.2 fL (35.1-46.3); Red Blood Cell Count 4.37 M/mm3 (4.30-5.90); White Blood Cell Count 12.28 K/mm3 (4.00-11.30)
--- NOTE | 2023-03-29 22:59 | NUR ---
ASSUMPTION OF CARE: PATIENT IS ALERT AND ORIENTED PLEASANT, COOEPRATIVE WITH CARE. ON ASSUMPTION IS ON RIGHT SIDE SLEEPING. RECIEVING ABX'S. AZITHRO, AND ROCEPHIN, PATIENT HAS BEEN TOLERATING WELL. BLOOD PRESSURE IS MILDLY DIASTOLICALLY INCREASED <100. PATIENT WAS ABLE TO TOLERATE A SNACK, STAFF HAS BEEN WATCHING FLUIDS. NO OFFICIAL FR. ECHO PREFORMED DURING DAY. DENIES ANY CHEST PAIN OR PRESSURE. STARTED THE SHIFT ON 4L, HAD TO BE INCREASED TO 5L. AND POSITIONED HOB >30, TO DECREASE WOB. IMPROVED, PRN TYLENOL GIVEN, PATIENT RESTING.
[2023-03-30 03:00] VITALS: BP 117/86
[2023-03-30 05:17] LABS: BASOPHILS ABSOLUTE AUTO 0.06 K/mm3 (0.00-0.23); BASOPHILS PERCENT AUTO 0 % (0-2); EOSINOPHILS ABSOLUTE AUTO 0.26 K/mm3 (0.00-0.68); EOSINOPHILS PERCENT AUTO 2 % (0-6); Hematocrit 38.3 % (37.0-53.0); Hemoglobin 12.4 g/dL (13.5-17.5); IMMATURE GRAN ABSOLUTE AUTO 0.06 K/mm3 (0.00-0.10); IMMATURE GRAN PERCENT AUTO 0 % (0-1); LYMPHOCYTES ABSOLUTE AUTO 1.81 K/mm3 (0.84-5.20); LYMPHOCYTES PERCENT AUTO 12 % (21-46); MONOCYTES ABSOLUTE AUTO 0.95 K/mm3 (0.16-1.47); MONOCYTES PERCENT AUTO 6 % (4-13); Mean Corpuscular HGB 28.1 pg (26.0-34.0); Mean Corpuscular HGB Conc 32.4 g/dL (31.5-36.5); Mean Corpuscular Volume 87 fL (80-100); Mean Platelet Volume 11.2 fL (9.1-12.4); NEUTROPHILS ABSOLUTE AUTO 12.31 K/mm3 (1.96-9.15); NEUTROPHILS PERCENT AUTO 80 % (41-73); NRBC ABSOLUTE 0.04 K/mm3 (0.00-0.02); NRBC Auto 0.3 /100 WBC (0.0-0.2); Platelet Count 223 K/mm3 (150-400); RDW Coefficient Variation 15.7 % (11.7-14.2); RDW Standard Deviation 49.2 fL (35.1-46.3); Red Blood Cell Count 4.42 M/mm3 (4.30-5.90); White Blood Cell Count 15.45 K/mm3 (4.00-11.30)
[2023-03-30 05:38] LABS: Albumin, Blood 2.5 g/dL (3.4-5.0); Albumin/Globulin Ratio 0.7 (0.8-1.8); Bun/Creatinine Ratio 22.3 (12.0-20.0); Calcium, Blood 8.2 mg/dL (8.5-10.1); Creatinine, Blood 1.66 mg/dL (0.60-1.20); Globulin, Blood 3.7 g/dL (2.2-4.0); Magnesium, Blood 2.2 mg/dL (1.6-2.4); Phosphorus, Blood 2.8 mg/dL (2.5-4.9); Potassium, Blood 4.3 mmol/L (3.5-5.5); Total Protein, Blood 6.2 g/dL (6.4-8.2)
[2023-03-30 08:11] VITALS: BP 130/94
--- NOTE | 2023-03-30 10:26 | NUR ---
PT HAS BEEN SLEEPING MOST OF THE DAY. HE AWAKENS EASILY FOR MEDICATIONS AND FOOD TRAY. HE IS A/0 X4. HE REPORTS GOOD IMPROVEMENT IN BREATHING. THERE HAVE BEEN NO DESATURATIONS NOTED YET THIS SHIFT. NADN. VSS. EVEN CHEST RISE AND FALL NOTED, WITH TACHYPNEA. SKIN PWD AND INTACT. HE DENIES ANY NEEDS OR CONCERNS
--- NOTE | 2023-03-30 16:03 | NUR ---
PT HAS BEEN SLEEPING T/O THE DAY. HE DENIES ANY NEEDS THE DAY PROGRESSES. HE REMAINS CHEST PAIN FREE, HE DENIES ANY SOB, BUT REPORTS "I FEEL A BIT WORSE TODAY". HE REMAINS AFEBRILE TODAY. OTHERWISE THERE ARE NO CHANGES SINCE LAST NOTE ENTRY
[2023-03-30 16:32] VITALS: BP 131/86
[2023-03-30 21:09] VITALS: BP 143/86
--- NOTE | 2023-03-30 21:25 | NUR ---
CARE ASSUMPTION this rn assumed care at 1900. vital signs stable. tele sr with bbb at 95. patient is alert and oriented x4. perrla. patient reports no chest pain/pressure, shortness of breath at rest, but becomes short of breath with activity, and reports no pain. patient up in room and had a shower and evening care indepdently. patient is able to make needs known and uses call light appropiately. patient is on 4l nc with spo2 >95% and clear upper lobes in the lung [place] and coarse lower lobes. see shift assessment for further detials. plan of care is up to date. bed is in lowest position wit call light within reach. medical status with tele.
[2023-03-31 03:52] VITALS: BP 147/101
[2023-03-31 04:12] LABS: Hematocrit 38.8 % (37.0-53.0); Hemoglobin 12.8 g/dL (13.5-17.5); Mean Corpuscular HGB 28.6 pg (26.0-34.0); Mean Corpuscular Volume 87 fL (80-100); Platelet Count 251 K/mm3 (150-400); RDW Coefficient Variation 15.4 % (11.7-14.2); RDW Standard Deviation 48.3 fL (35.1-46.3); Red Blood Cell Count 4.48 M/mm3 (4.30-5.90); White Blood Cell Count 14.14 K/mm3 (4.00-11.30)
[2023-03-31 04:35] LABS: Bun/Creatinine Ratio 22.8 (12.0-20.0); Calcium, Blood 8.3 mg/dL (8.5-10.1); Creatinine, Blood 1.49 mg/dL (0.60-1.20)
--- NOTE | 2023-03-31 06:18 | NUR ---
shift summary patient neuro remains unchaged. vital signs stable. no acute changes throughout this shift. patient has slept most of the shift. plan of care up to date
[2023-03-31 09:42] VITALS: BP 139/86
[2023-03-31 16:58] VITALS: BP 150/102
--- NOTE | 2023-03-31 18:01 | NUR ---
PT HAS BEEN SLEEPING OFF AND ON T/O THE DAY TODAY. HE APPEARS TO BE AWAKE MORE TODAY THAN PREVIOUS DAYS. HE DENIES SOB, REPORTS IMPROVEMENT IN WORK OF BREATHING. DENIES CP. SKIN PWD AND INTACT. NADN. VSS. HE DOES REFUSE TO CONSUME ANY WATER, HE WILL ONLY DRINK JUICE OR STARRY SODA, MOSTLY SODA. HE DID EXPRESS TO MD THAT HE DESIRES TO STOP USING DRUGS TODAY, BUT DOES NOT HAVE AN ACTIVE PLAN TO QUIT AT THIS TIME, HE REPORTS THAT HE UNDERSTANDS THAT USING METH IS GOING TO SHORTEN HIS LIFE SPAN.
--- NOTE | 2023-03-31 23:48 | NUR ---
PAITNET ON ASSUMPTION LOOKS MUCH IMPROVED SINCE PREVIOUS SHIFT WITH PATIENT. MORE TALKATIVE, PATIENT VERY COOPERATIVE WITH CARE, TOLERABLE THE CPAP WELL. CALLED PROVIDER DUE TO OBVIOUS DESATURATION WITH SLEEPING AND VERY DIMINISHED EF. PATIENT EDUCATED AND PARTICIPATING. VSS, NO CONCERNS FROM THIS RN. HE IS ALERT AND ORIENTED. DENIES CHEST PAIN PRESSURE OR SOB.
[2023-04-01 03:16] VITALS: BP 133/92
[2023-04-01 04:04] LABS: Hematocrit 38.5 % (37.0-53.0); Hemoglobin 12.6 g/dL (13.5-17.5); Mean Corpuscular HGB 28.3 pg (26.0-34.0); Mean Corpuscular HGB Conc 32.7 g/dL (31.5-36.5); Mean Corpuscular Volume 86 fL (80-100); Mean Platelet Volume 10.3 fL (9.1-12.4); NRBC ABSOLUTE 0.02 K/mm3 (0.00-0.02); NRBC Auto 0.2 /100 WBC (0.0-0.2); Platelet Count 275 K/mm3 (150-400); RDW Coefficient Variation 15.3 % (11.7-14.2); Red Blood Cell Count 4.46 M/mm3 (4.30-5.90); White Blood Cell Count 9.74 K/mm3 (4.00-11.30)
[2023-04-01 04:24] LABS: Albumin, Blood 2.2 g/dL (3.4-5.0); Anion Gap 5 mmol/L (6-16); Blood Urea Nitrogen 24 mg/dL (8-24); Bun/Creatinine Ratio 18.6 (12.0-20.0); CO2, Blood 26 mmol/L (21-32); Calcium, Blood 8.4 mg/dL (8.5-10.1); Chloride, Blood 110 mmol/L (98-108); Creatinine, Blood 1.29 mg/dL (0.60-1.20); Glomerular Filtration Rate 69 (60-); Glucose, Blood 96 mg/dL (70-99); Phosphorus, Blood 3.8 mg/dL (2.5-4.9); Sodium, Blood 141 mmol/L (136-145)
[2023-04-01 08:01] VITALS: BP 148/108
[2023-04-01] MEDS ORDERED: POTA10T PO (12:20)
--- NOTE | 2023-04-01 13:35 | NUR ---
DISCHARGE NOTE ALERT WHEN AWAKE. SLEEPS ALL THE TIME UNLESS EATING. ORIENTED WHEN AWAKE. WITHDRAWN, MOSTLY COOPERATIVE, SOMEWHAT IRRITABLE. NOTED APNEIC SPELLS WHEN SLEEPING REQUIRING CPAP TO KEEP SATS ABOVE 92%. OTHERWISE NOTED DESATURATIONS TO 82%. TOLERATING CARDIAC DIET AND LIQUIDS. VOIDING WELL. INDEPENDENT IN ROOM. HOME O2 EVAL REPORTED NEED FOR 2L O2 VIA NC PRN FOR EXERTION. DISCHARGE ORDER GIVEN. DISCHARGE EDUCATION GIVEN ON NEW MEDS, FOLLOW UP WITH PCP AND CARDIOLOGY. IV DC'D WNL. [facility] DELIVERED OXYGEN TANK. PATIENT LEFT UNIT AT 1320 VIA WHEELCHAIR WITH FAMILY MEMBER FOR HOME.
== END 2023-04-01 13:14 | disposition home or self-care (01) | DRG 871 ==
LOC: ER 19:20 → PCU 23:45
PROVIDERS: Family Medicine; Family Medicine Adult Medicine; Student in an Organized Health Care Education/Training Program; ADMIT Internal Medicine
PROC: 3E03329 Introduction of Other Anti-infective into Peripheral Vein, Percutaneous Approach (ICD-10-PCS; principal; 2023-03-28)
PROC: 5A09357 Assistance with Respiratory Ventilation, Less than 24 Consecutive Hours, Continuous Positive Airway Pressure (ICD-10-PCS; 2023-03-31)
DX: A41.9 Sepsis, unspecified organism (principal); I50.23 Acute on chronic systolic (congestive) heart failure; J18.9 Pneumonia, unspecified organism; J96.01 Acute respiratory failure with hypoxia; I13.0 Hypertensive heart and chronic kidney disease with heart failure and stage 1 through stage 4 chronic kidney disease, or unspecified chronic kidney disease; Z59.00 Homelessness unspecified; E87.21 Acute metabolic acidosis; N18.30 Chronic kidney disease, stage 3 unspecified; I51.3 Intracardiac thrombosis, not elsewhere classified; F15.10 Other stimulant abuse, uncomplicated; F41.9 Anxiety disorder, unspecified; F32.A Depression, unspecified; M25.561 Pain in right knee; G89.29 Other chronic pain; Z98.890 Other specified postprocedural states; Z87.891 Personal history of nicotine dependence; Z86.711 Personal history of pulmonary embolism; Z88.8 Allergy status to other drugs, medicaments and biological substances; Z88.5 Allergy status to narcotic agent; Z79.899 Other long term (current) drug therapy; Z79.01 Long term (current) use of anticoagulants
CPT/HCPCS: 36415; 71046; 80048; 80053; 80069; 83605; 83735; 83880; 84100; 84484; 85025; 85027; 85610; 87040; 93005; 93010; 94660; 94761; 94762; 96365; 96375; 99285-25; A9270; C8929; J0456; J0696; J7050; Q9957

== ENCOUNTER 2023-04-21 13:21 | Inpatient (IN) | payer OTHER ==
[~2023-04-21] VITALS: Ht 170.2 cm; Wt 97.1 kg
[~2023-04-21 13:21] MED LIST changes: +POTA10T PO
[2023-04-21 14:00] LABS: BASOPHILS ABSOLUTE AUTO 0.09 K/mm3 (0.00-0.23); BASOPHILS PERCENT AUTO 1 % (0-2); EOSINOPHILS ABSOLUTE AUTO 0.18 K/mm3 (0.00-0.68); EOSINOPHILS PERCENT AUTO 2 % (0-6); Hematocrit 38.9 % (37.0-53.0); Hemoglobin 12.5 g/dL (13.5-17.5); IMMATURE GRAN ABSOLUTE AUTO 0.03 K/mm3 (0.00-0.10); IMMATURE GRAN PERCENT AUTO 0 % (0-1); LYMPHOCYTES ABSOLUTE AUTO 2.35 K/mm3 (0.84-5.20); LYMPHOCYTES PERCENT AUTO 23 % (21-46); MONOCYTES ABSOLUTE AUTO 0.82 K/mm3 (0.16-1.47); MONOCYTES PERCENT AUTO 8 % (4-13); Mean Corpuscular HGB 27.4 pg (26.0-34.0); Mean Corpuscular HGB Conc 32.1 g/dL (31.5-36.5); Mean Corpuscular Volume 85 fL (80-100); Mean Platelet Volume 10.5 fL (9.1-12.4); NEUTROPHILS ABSOLUTE AUTO 6.72 K/mm3 (1.96-9.15); NEUTROPHILS PERCENT AUTO 66 % (41-73); NRBC ABSOLUTE 0.02 K/mm3 (0.00-0.02); NRBC Auto 0.2 /100 WBC (0.0-0.2); Platelet Count 240 K/mm3 (150-400); RDW Coefficient Variation 15.1 % (11.7-14.2); RDW Standard Deviation 46.3 fL (35.1-46.3); Red Blood Cell Count 4.57 M/mm3 (4.30-5.90); White Blood Cell Count 10.19 K/mm3 (4.00-11.30)
[2023-04-21 14:17] LABS: Albumin, Blood 2.7 g/dL (3.4-5.0); Albumin/Globulin Ratio 0.8 (0.8-1.8); Bilirubin, Total 1.1 mg/dL (0.1-1.0); Bun/Creatinine Ratio 17.5 (12.0-20.0); Calcium, Blood 8.4 mg/dL (8.5-10.1); Creatinine, Blood 1.37 mg/dL (0.60-1.20); Globulin, Blood 3.5 g/dL (2.2-4.0); Potassium, Blood 4.1 mmol/L (3.5-5.5); Total Protein, Blood 6.2 g/dL (6.4-8.2)
[2023-04-21 17:25] LABS: International Normalized Ratio 1.44; Prothrombin Time Results 14.8 Sec (9.7-11.5)
[2023-04-21 20:53] VITALS: BP 145/93
[2023-04-21 23:49] VITALS: BP 154/100
[2023-04-22 00:40] LABS: BASOPHILS ABSOLUTE AUTO 0.09 K/mm3 (0.00-0.23); BASOPHILS PERCENT AUTO 1 % (0-2); EOSINOPHILS ABSOLUTE AUTO 0.29 K/mm3 (0.00-0.68); EOSINOPHILS PERCENT AUTO 3 % (0-6); Hematocrit 36.9 % (37.0-53.0); IMMATURE GRAN ABSOLUTE AUTO 0.03 K/mm3 (0.00-0.10); IMMATURE GRAN PERCENT AUTO 0 % (0-1); LYMPHOCYTES ABSOLUTE AUTO 2.97 K/mm3 (0.84-5.20); LYMPHOCYTES PERCENT AUTO 27 % (21-46); MONOCYTES ABSOLUTE AUTO 0.81 K/mm3 (0.16-1.47); MONOCYTES PERCENT AUTO 7 % (4-13); Mean Corpuscular HGB 27.6 pg (26.0-34.0); Mean Corpuscular HGB Conc 32.5 g/dL (31.5-36.5); Mean Corpuscular Volume 85 fL (80-100); Mean Platelet Volume 10.5 fL (9.1-12.4); NEUTROPHILS ABSOLUTE AUTO 6.76 K/mm3 (1.96-9.15); NEUTROPHILS PERCENT AUTO 62 % (41-73); Platelet Count 213 K/mm3 (150-400); RDW Coefficient Variation 14.8 % (11.7-14.2); RDW Standard Deviation 45.5 fL (35.1-46.3); Red Blood Cell Count 4.35 M/mm3 (4.30-5.90); White Blood Cell Count 10.95 K/mm3 (4.00-11.30)
[2023-04-22 00:57] LABS: Albumin, Blood 2.6 g/dL (3.4-5.0); Albumin/Globulin Ratio 0.8 (0.8-1.8); Bilirubin, Total 0.9 mg/dL (0.1-1.0); Bun/Creatinine Ratio 17.4 (12.0-20.0); Calcium, Blood 7.9 mg/dL (8.5-10.1); Creatinine, Blood 1.44 mg/dL (0.60-1.20); Globulin, Blood 3.3 g/dL (2.2-4.0); Magnesium, Blood 1.6 mg/dL (1.6-2.4); Potassium, Blood 3.4 mmol/L (3.5-5.5); Total Protein, Blood 5.9 g/dL (6.4-8.2)
--- NOTE | 2023-04-22 02:21 | NUR ---
UPDATE THIS RN RECEIVED NOTICE FROM TELEMETRY THAT PT WAS DEMONSTRATING ST CHANGES. PT IS ASYMPOMATIC WITH NO REPORTS OF SOB, CP, PRESSURE, DIZZINESS, OR PALPITATIONS. DR. SHABAZZ MADE AWARE WITH EKG CONDUCTED AND SAID RESULTS GIVEN TO MD. NO NEW ORDERS AT THIS TIME. HEPARIN gtt REMAINS RUNNING ORDERED VIA EMAR
[2023-04-22 02:56] VITALS: BP 128/83
--- NOTE | 2023-04-22 05:50 | NUR ---
SHIFT SUMMARY/PCU ARRIVAL NOTE RECEIVED REPORT FROM FLAG SIGNALER CED PERRY ~2032 YESTERDAY PM. PT SHORTLY ARRIVED TO PCU 19 . TRANSFERRED FROM ER [facility] TO PCU BED WITH MINIMAL ASSISTANCE. A/Ox4 AND COOPERATIVE WITH CARE. ANSWERS QUESTIONS APPROPRIATELY AND ABLE TO MAKE HIS NEEDS KNOWN. CARDIAC, ARRIVED IN SR RANGING 60-80's T/O THE NIGHT WITH NO REPORT OF CP OR PRESSURE T/O THE NIGHT. PER TELEMETRY, ST CHANGES WITH 15 BEAT RUN OF VTACH NOTED. PT WAS ASYMPTOMATIC OF BOTH OF THESE EVENTS. NO UPDATE NOTE FOR MORE DETAILS. SBP HAS BEEN STABLE RANGING 120-150 S. RESPIRATORY, MAINTAINS SPO2 >92% ON RA WITH NO REPORTS OF SOB OR DYSPNEA. NOTICEABLE APNEA WITH DESATURATION INTO LOW 80'S WHEN PT IS SLEEPING. CPAP UTILIZED TO MAINTAIN SPO2 WHEN PT IS ASLEEP.GI/, BS PRESENT IN ALL QUADRANTS WITH NO REPORT OF N/V/D OR ABD PAIN. ABLE TO INDEPENDENTLY USE URINAL AT BEDSIDE PRODUCING CLEAR/YELLOW URINE. HEPARIN gtt IS BEING MANAGED BY PHARMACY AND HAS BEEN INFUSING T/O THE NIGHT ORDERED VIA EMAR. PT HAS BEEN NPO SINCE MDN FOR POTENTIAL PROCEDURE. CARDIOLOGY CONSULT CALLED TO ANSWERING SERVICE THIS AM PER ORDERS. PAIN MANAGED WELL VIA EMAR. ASSESSED PT FOR RISKS OF ANY IGNITION SOURCES WELL BEHAVIORS FOR INCREASED RISKS OF FIRE DANGER. PT EDUCATED ON COMMON SOURCES OF IGNITION WELL NEED TO KEEP A SAFE ENVIRONMENT. PT VOICED UNDERSTANDING. NO NEW ORDERS AT THIS TIME, WILL REPORT TO ONCOMING RN. REGINE PATEL OF THIS NOTE
[2023-04-22 07:25] VITALS: BP 136/93
[2023-04-22 11:28] VITALS: BP 116/95
[2023-04-22 15:25] VITALS: BP 127/95
--- NOTE | 2023-04-22 17:54 | NUR ---
PT summary: alert and oriented x4. pt is mobile with nurse assist. vitals have been stable, SR between 80-90s, afebrile, SBP between 110-135 DBP in the mid-90s, 99% O2 on room air, uses BiPAP during hours of sleep. Mild SOB upon exertion. [place] 5/325 for chest pain, reporting pain between 6-8. Dr. Blandon rounded on the pt at 0800- plan to diurese with Lasix today. Total output: 2500mL NPO at midnight for Angio scheduled in the AM.
[2023-04-22 19:43] VITALS: BP 123/80
[2023-04-22 23:20] VITALS: BP 124/77
[2023-04-23] VITALS (12 sets, daily range): BP systolic 103–144; BP diastolic 66–105
[2023-04-23 04:21] LABS: Hematocrit 41.6 % (37.0-53.0); Hemoglobin 13.3 g/dL (13.5-17.5); Mean Corpuscular HGB 27.5 pg (26.0-34.0); Mean Corpuscular Volume 86 fL (80-100); Mean Platelet Volume 10.4 fL (9.1-12.4); Platelet Count 224 K/mm3 (150-400); RDW Coefficient Variation 15.2 % (11.7-14.2); RDW Standard Deviation 47.2 fL (35.1-46.3); Red Blood Cell Count 4.84 M/mm3 (4.30-5.90); White Blood Cell Count 8.28 K/mm3 (4.00-11.30)
[2023-04-23 05:55] LABS: Albumin, Blood 2.6 g/dL (3.4-5.0); Anion Gap 7 mmol/L (6-16); Blood Urea Nitrogen 27 mg/dL (8-24); Bun/Creatinine Ratio 17.5 (12.0-20.0); CO2, Blood 24 mmol/L (21-32); Calcium, Blood 8.4 mg/dL (8.5-10.1); Chloride, Blood 110 mmol/L (98-108); Creatinine, Blood 1.54 mg/dL (0.60-1.20); Glomerular Filtration Rate 56 (60-); Glucose, Blood 105 mg/dL (70-99); Phosphorus, Blood 4.6 mg/dL (2.5-4.9); Potassium, Blood 3.9 mmol/L (3.5-5.5); Sodium, Blood 141 mmol/L (136-145)
--- NOTE | 2023-04-23 06:06 | NUR ---
SHIFT SUMMARY A/Ox4 AND COOPERATIVE WITH CARE. ANSWERS QUESTIONS APPROPRIATELY AND ABLE TO MAKE HIS NEEDS KNOWN. CARDIAC, REMAINS IN SR RANGING 60-90's WITH NO REPORT OF CP OR PRESSURE T/O THE NIGHT. SBP HAS BEEN STABLE RANGING 100-120's. RESPIRATORY, MAINTAINS SPO2 >92% ON RA WITH NO REPORTS OF SOB OR DYSPNEA. NOTICEABLE APNEA WITH DESATURATION INTO LOW 80's WHEN PT IS SLEEPING. CPAP UTILIZED TO MAINTAIN SPO2 WHEN PT IS ASLEEP. GI/, BS PRESENT IN ALL QUADRANTS WITH NO REPORT OF N/V/D OR ABD PAIN. ABLE TO INDEPENDENTLY USE URINAL AT BEDSIDE PRODUCING CLEAR/YELLOW URINE. ONE LARGE BM AT THE START OF THE SHIFT. HEPARIN gtt IS BEING MANAGED BY PHARMACY AND HAS BEEN INFUSING T/O THE NIGHT ORDERED VIA EMAR. PT HAS BEEN NPO SINCE MDN FOR SCHEDULED ANGIO THIS AM. PAIN MANAGED WELL VIA EMAR. ASSESSED PT FOR RISKS OF ANY IGNITION SOURCES WELL BEHAVIORS FOR INCREASED RISKS OF FIRE DANGER. PT EDUCATED ON COMMON SOURCES OF IGNITION WELL NEED TO KEEP A SAFE ENVIRONMENT. PT VOICED UNDERSTANDING. NO NEW ORDERS AT THIS TIME, WILL REPORT TO ONCOMING RN. REGINE PATEL OF THIS NOTE
[2023-04-23] MEDS ORDERED: SPIR25 PO (13:32)
[2023-04-23] MEDS ORDERED: JARDIANCE10 MG PO (13:32)
--- NOTE | 2023-04-23 14:44 | NUR ---
DISCHARGE NOTE. PT WAS TAKEN TO [facility] FOR PICKUP BY TAXI AT 1435. TR BAND WAS REMOVED, NO DISCHARGE/SWELLING/COMPLAINTS OF PAIN/ETC. SITE WNL. ARMBOARD LEFT IN PLACE. PT EDUCATED ON PRECAUTIONS WITH ANGIO SITE WELL GENERAL DISCHARGE INSTRUCTIONS. MEDICATION LIST FAXED TO [facility] IN [place]. BOTH IV CATHETERS REMOVED, TIPS INTACT AND WHOLE WITH NO SWELLING OR COMPLAINTS OF PAIN AT SITE. PT VOICED UNDERSTANDING OF ALL DISCHARGE INSTRUCTIONS/EDUCATION. ENCOURAGED TO CALL IF HE HAS ANY QUESTIONS OR CONCERNS.
== END 2023-04-23 14:36 | disposition home or self-care (01) | DRG 286 ==
LOC: ER 13:21 → PCU 13:22
PROVIDERS: Emergency Medicine; Internal Medicine; ADMIT Student in an Organized Health Care Education/Training Program
PROC: 5A09357 Assistance with Respiratory Ventilation, Less than 24 Consecutive Hours, Continuous Positive Airway Pressure (ICD-10-PCS; 2023-04-21)
PROC: B2111ZZ Fluoroscopy of Multiple Coronary Arteries using Low Osmolar Contrast (ICD-10-PCS; principal; 2023-04-23)
DX: R07.89 Other chest pain (principal); J96.21 Acute and chronic respiratory failure with hypoxia; I50.22 Chronic systolic (congestive) heart failure; I42.7 Cardiomyopathy due to drug and external agent; I13.0 Hypertensive heart and chronic kidney disease with heart failure and stage 1 through stage 4 chronic kidney disease, or unspecified chronic kidney disease; I47.29 Other ventricular tachycardia; I31.39 Other pericardial effusion (noninflammatory); I25.10 Atherosclerotic heart disease of native coronary artery without angina pectoris; R77.8 Other specified abnormalities of plasma proteins; F15.11 Other stimulant abuse, in remission; N18.30 Chronic kidney disease, stage 3 unspecified; I50.82 Biventricular heart failure; I27.20 Pulmonary hypertension, unspecified; I44.7 Left bundle-branch block, unspecified; I08.3 Combined rheumatic disorders of mitral, aortic and tricuspid valves; M19.90 Unspecified osteoarthritis, unspecified site; E87.6 Hypokalemia; I51.3 Intracardiac thrombosis, not elsewhere classified; Z88.8 Allergy status to other drugs, medicaments and biological substances; Z88.6 Allergy status to analgesic agent; Z88.5 Allergy status to narcotic agent; Z79.01 Long term (current) use of anticoagulants; Z87.891 Personal history of nicotine dependence; Z86.711 Personal history of pulmonary embolism; Z59.89 Other problems related to housing and economic circumstances
CPT/HCPCS: 36415; 71046; 71260; 76937; 80053; 80069; 83735; 83880; 84484; 85025; 85027; 85610; 85730; 93005; 93010; 93454; 94660; 94762; 96365-59; 96366; 96366-59; 96375-59; 96376; 99152; 99285-25; A9270; C1769; C1887; C1894; G0378; J1644; J1940; J2250; J2270; J3010; J7030; J7050; Q9967

== ENCOUNTER 2023-05-17 10:41 | Emergency (ER) | payer OTHER ==
[~2023-05-17] VITALS: Ht 172.7 cm; Wt 90.7 kg
[~2023-05-17 10:41] MED LIST changes: +JARDIANCE10 MG PO; +SPIR25 PO
[2023-05-17 12:35] LABS: BASOPHILS ABSOLUTE AUTO 0.07 K/mm3 (0.00-0.23); BASOPHILS PERCENT AUTO 1 % (0-2); EOSINOPHILS ABSOLUTE AUTO 0.17 K/mm3 (0.00-0.68); EOSINOPHILS PERCENT AUTO 2 % (0-6); Hematocrit 43.1 % (37.0-53.0); Hemoglobin 13.8 g/dL (13.5-17.5); IMMATURE GRAN ABSOLUTE AUTO 0.04 K/mm3 (0.00-0.10); IMMATURE GRAN PERCENT AUTO 0 % (0-1); LYMPHOCYTES ABSOLUTE AUTO 2.01 K/mm3 (0.84-5.20); LYMPHOCYTES PERCENT AUTO 20 % (21-46); MONOCYTES ABSOLUTE AUTO 0.72 K/mm3 (0.16-1.47); MONOCYTES PERCENT AUTO 7 % (4-13); Mean Corpuscular HGB 27.2 pg (26.0-34.0); Mean Corpuscular Volume 85 fL (80-100); Mean Platelet Volume 11.1 fL (9.1-12.4); NEUTROPHILS ABSOLUTE AUTO 6.89 K/mm3 (1.96-9.15); NEUTROPHILS PERCENT AUTO 70 % (41-73); NRBC ABSOLUTE 0.02 K/mm3 (0.00-0.02); NRBC Auto 0.2 /100 WBC (0.0-0.2); Platelet Count 202 K/mm3 (150-400); RDW Coefficient Variation 15.8 % (11.7-14.2); RDW Standard Deviation 47.8 fL (35.1-46.3); Red Blood Cell Count 5.07 M/mm3 (4.30-5.90)
[2023-05-17 12:47] LABS: Albumin, Blood 3.2 g/dL (3.4-5.0); Albumin/Globulin Ratio 0.9 (0.8-1.8); Bilirubin, Total 0.7 mg/dL (0.1-1.0); Bun/Creatinine Ratio 18.3 (12.0-20.0); Calcium, Blood 9.2 mg/dL (8.5-10.1); Creatinine, Blood 1.31 mg/dL (0.60-1.20); Globulin, Blood 3.7 g/dL (2.2-4.0); Potassium, Blood 4.4 mmol/L (3.5-5.5); Total Protein, Blood 6.9 g/dL (6.4-8.2)
[2023-05-17] MEDS ORDERED: FURO20 PO (15:55)
[2023-05-17 16:40] VITALS: BP 181/136
== END 2023-05-17 16:42 | disposition home or self-care (01) ==
LOC: ER 10:41
PROVIDERS: Physician Assistant
DX: R07.89 Other chest pain (principal); I11.0 Hypertensive heart disease with heart failure; I50.22 Chronic systolic (congestive) heart failure; Z88.5 Allergy status to narcotic agent; Z88.8 Allergy status to other drugs, medicaments and biological substances; Z79.02 Long term (current) use of antithrombotics/antiplatelets; Z79.899 Other long term (current) drug therapy
CPT/HCPCS: 71046; 80053; 83880; 84484; 85025; 93005; 93010; 99285-25

== ENCOUNTER 2023-07-12 08:32 | Inpatient (IN) | payer OTHER ==
[~2023-07-12] VITALS: Ht 170.2 cm; Wt 94.4 kg
[~2023-07-12 08:32] MED LIST changes: +Carvedilol12.5 MG PO; +FURO20 PO; -LOSA25 PO; +LOSA50 PO
[2023-07-12 09:12] LABS: BASOPHILS ABSOLUTE AUTO 0.11 K/mm3 (0.00-0.23); BASOPHILS PERCENT AUTO 1 % (0-2); EOSINOPHILS ABSOLUTE AUTO 0.24 K/mm3 (0.00-0.68); EOSINOPHILS PERCENT AUTO 2 % (0-6); Hematocrit 42.1 % (37.0-53.0); Hemoglobin 13.1 g/dL (13.5-17.5); IMMATURE GRAN ABSOLUTE AUTO 0.02 K/mm3 (0.00-0.10); IMMATURE GRAN PERCENT AUTO 0 % (0-1); LYMPHOCYTES ABSOLUTE AUTO 2.27 K/mm3 (0.84-5.20); LYMPHOCYTES PERCENT AUTO 22 % (21-46); MONOCYTES ABSOLUTE AUTO 0.68 K/mm3 (0.16-1.47); MONOCYTES PERCENT AUTO 7 % (4-13); Mean Corpuscular HGB Conc 31.1 g/dL (31.5-36.5); Mean Corpuscular Volume 80 fL (80-100); NEUTROPHILS ABSOLUTE AUTO 7.02 K/mm3 (1.96-9.15); NEUTROPHILS PERCENT AUTO 68 % (41-73); Platelet Count 329 K/mm3 (150-400); RDW Coefficient Variation 16.9 % (11.7-14.2); RDW Standard Deviation 49.1 fL (35.1-46.3); Red Blood Cell Count 5.25 M/mm3 (4.30-5.90); White Blood Cell Count 10.34 K/mm3 (4.00-11.30)
[2023-07-12 10:12] LABS: Albumin, Blood 2.6 g/dL (3.4-5.0); Albumin/Globulin Ratio 0.7 (0.8-1.8); Bilirubin, Total 0.8 mg/dL (0.1-1.0); Bun/Creatinine Ratio 17.4 (12.0-20.0); Calcium, Blood 8.5 mg/dL (8.5-10.1); Creatinine, Blood 1.49 mg/dL (0.60-1.20); Globulin, Blood 3.7 g/dL (2.2-4.0); Potassium, Blood 4.4 mmol/L (3.5-5.5); Total Protein, Blood 6.3 g/dL (6.4-8.2)
[2023-07-12 12:23] VITALS: BP 156/96
--- NOTE | 2023-07-12 12:48 | NUR ---
ADMISSION: PT ARRIVED TO PCU 5 AT 1215 VIA GURNEY. PT ABLE TO WALK IND TO HOSPITAL BED. ALERT AND ORIENTED X4, ABLE TO FOLLOW COMMANDS AND MAKE NEEDS KNOWN. STRENGTH EQUAL BILATERALLY. PEERLA. BP STABLE, HR SR 90'S, AFEBRILE, SPO2 >94% ON ROOM AIR. PT STATES WEARS OXYGEN AT HOME, UNK OF LMP. RESPIRATIONS EVEN AND UNLABORED AT REST. LUNG SOUNDS COARSE THROUGHOUT, PT WITH NON PRODUCTIVE COUGH. STATES HAVING COUGH X1 MONTH, REPORTS "PASSING OUT X2 FROM COUGHING SO HARD." RADIAL PULSES STRONG, PEDAL PULSES FAINT, +2 EDEMA NOTED IN BLE. PT DENIES CP AT THIS TIME, REPORTS HAVING 7/10 CHEST PAIN THIS AM. ABD SOFT, NON TENDER, BOWEL SOUND +. CARDIOLOGY CONSULT CALLED IN ER, NO PLANS FOR INTERVENTION AT THIS TIME, ORDERS RECEIVED FOR 40MG LASIX. PT ABLE TO USE URINAL AT BEDSIDE. PT STATES LAST DRUG USE X1 WEEK AGO. PT ORIENTED TO ROOM AND CALL LIGHT SYSTEM. DENIES NEEDS AT THIS TIME. BED IN LOW, CALL LIGHT IN REACH.
[2023-07-12 15:32] VITALS: BP 146/111
[2023-07-12 17:12] LABS: Adenovirus Not Detected (NOT DETECT); Bordetella pertussis Not Detected (NOT DETECT); Chlamydophila pneumoniae Not Detected (NOT DETECT); Coronavirus 229E Not Detected (NOT DETECT); Coronavirus HKU1 Not Detected (NOT DETECT); Coronavirus NL63 Not Detected (NOT DETECT); Coronavirus OC43 Not Detected (NOT DETECT); Human Metapneumovirus Not Detected (NOT DETECT); Human Rhinovirus/Enterovirus Not Detected (NOT DETECT); Influenza A/2009-H1 Not Detected (NOT DETECT); Influenza A/H1 Not Detected (NOT DETECT); Influenza A/H3 Not Detected (NOT DETECT); Influenza B Not Detected (NOT DETECT); Mycoplasma pneumoniae Not Detected (NOT DETECT); Parainfluenza Virus 1 Not Detected (NOT DETECT); Parainfluenza Virus 2 Not Detected (NOT DETECT); Parainfluenza Virus 3 Not Detected (NOT DETECT); Parainfluenza Virus 4 Not Detected (NOT DETECT); Respiratory Syncytial Virus Not Detected (NOT DETECT); SARS-Cov-2 (COVID-19), BioFire Not Detected (NOT DETECT)
--- NOTE | 2023-07-12 17:26 | NUR ---
SHIFT SUMMARY: PT WITH NO ACUTE EVENTS SINCE ADMISSION. CURRENTLY DIUERSING, ABLE TO USE URINAL AT BEDSIDE. GOOD URINARY OUTPUT. PT MEDICATED FOR PAIN PER EMAR. PT HYPERTENSIVE THIS AFTERNOON, NEW ORDERS RECEIVED. CURRENTLY SITTING ON EDGE OF BED, EATING DINNER. BED IN LOW, CALL LIGHT IN REACH, WILL REPORT TO ONCOMING RN.
[2023-07-12 17:47] LABS: U Amphetamine Screen Not Detected; U Barbituate Screen Not Detected; U Benzodiazapine Screen Not Detected; U Buprenorphine Screen Not Detected; U Cannabinoids Screen DETECTED; U Cocaine Screen Not Detected; U Methadone Screen Not Detected; U Methamphetamine Screen Not Detected; U Opiates Screen Not Detected; U Oxycodone Screen Not Detected; U Phencyclidine Screen Not Detected
[2023-07-12 19:33] VITALS: BP 147/94
[2023-07-12 23:47] VITALS: BP 135/93
[2023-07-13 04:08] VITALS: BP 141/103
--- NOTE | 2023-07-13 04:15 | NUR ---
SHIFT SUMMARY. PT HAS BEEN DOING WELL THIS SHIFT. AOX4, PLEASANT, COOPERATIVE WITH CARE. PT HAS BEEN ABLE TO SLEEP THROUGH MOST OF SHIFT, CALLS APPROPRIATELY FOR ASSISTANCE, ABLE TO MAKE NEEDS KNOWN. TELE HAS BEEN ON THROUGHOUT SHIFT. AT ABOUT ~0405, NOTIFICATION FROM [employer] THAT PT WAS RUNNING HIGHER ST ELEVATION ON TELE THAN HE HAD BEEN PRIOR. THIS RN WAS IN THE ROOM AT THE TIME, PT WAS IN THE BATHROOM. ONCE PT WAS BACK INTO BED, VITALS WERE TAKEN WHICH WERE STABLE, NO SIGNIFICANT CHANGES. DENIED CHEST PAIN/DIZZINESS/RACING HEART SENSATION, CHEST PRESSURE/ETC. NOTED HE DID FEEL SLIGHTLY SOB FROM AMBULATION TO BATHROOM. FEW MINUTES LATER AFTER PT WAS SETTLED BACK INTO BED, DEGREE OF ST ELEVATION HAD SETTLED CLOSER TO WHAT IT WAS PRIOR TO THIS INCIDENT WITH SPORADIC AND INCONSISTENT ST ELEVATED BEATS. REVIEWED CARDIOLOGY CONSULT NOTE AND DISCUSSED WITH VETERINARY ATTENDANT LYNN DEAN. AWARE OF DEMAND RELATED ISCHEMIA, CHOOSING TO MANAGE MEDICALLY AT THIS TIME. NO ACUTE CHANGES IN PT CONDITION, NO NEED TO NOTIFY HOSPITALIST AT THIS TIME. PRIMARY PAIN AREA OF SHIFT HAS BEEN RIGHT ANKLE AND PAIN HAS BEEN ADEQUATELY MANAGED VIA EMAR. BED LOCKED IN LOWEST POSITION. CALL LIGHT LEFT WITHIN REACH. CONTINUING TO MONITOR.
[2023-07-13 04:29] LABS: Hematocrit 45.5 % (37.0-53.0); Hemoglobin 14.2 g/dL (13.5-17.5); Mean Corpuscular HGB 24.8 pg (26.0-34.0); Mean Corpuscular HGB Conc 31.2 g/dL (31.5-36.5); Mean Corpuscular Volume 80 fL (80-100); Mean Platelet Volume 9.6 fL (9.1-12.4); Platelet Count 343 K/mm3 (150-400); RDW Coefficient Variation 17.8 % (11.7-14.2); Red Blood Cell Count 5.72 M/mm3 (4.30-5.90)
[2023-07-13 04:50] LABS: Albumin, Blood 2.5 g/dL (3.4-5.0); Anion Gap 5 mmol/L (6-16); Blood Urea Nitrogen 25 mg/dL (8-24); Bun/Creatinine Ratio 17.2 (12.0-20.0); CO2, Blood 27 mmol/L (21-32); Calcium, Blood 8.6 mg/dL (8.5-10.1); Chloride, Blood 107 mmol/L (98-108); Creatinine, Blood 1.45 mg/dL (0.60-1.20); Glomerular Filtration Rate 60 (60-); Glucose, Blood 105 mg/dL (70-99); Potassium, Blood 3.8 mmol/L (3.5-5.5); Sodium, Blood 139 mmol/L (136-145)
[2023-07-13 07:29] VITALS: BP 141/111
[2023-07-13 14:58] VITALS: BP 151/110
--- NOTE | 2023-07-13 16:46 | NUR ---
SHIFT SUMMARY: PT REMAINS ALERT AND ORIENTED X4, ABLE TO FOLLOW COMMANDS AND MAKE NEEDS KNOWN. STRENGTH EQUAL BILATERALLY. HR STABLE. NO TELE EVENTS NOTED. ST ELEVATION REMAINS BASELINE. AFEBRILE. SPO2 >96% ON ROOM AIR. RESPIRATIONS EVEN AND UNLABORED. LUNG SOUNDS COARSE THROUGHOUT, PT WITH NON PRODUCTIVE COUGH, STATES IMPROVEMENT FROM YESTERDAY. PT HYPERTENSIVE THROUGHOUT THIS SHIFT, MEDICATED PER EMAR. DIURESING WELL, NO BM. ABD SOFT, NON TENDER, BOWEL SOUNDS +, IND TO AND FROM BATHROOM. ADEQUATE PO INTAKE. PT STATES 6/10 PAIN IN R. ANKLE FROM FALL AT HOME. FOOT BRUISED, SWOLLEN. PULSE PALPABLE. MEDICATED PER EMAR FOR PAIN. HOME MED REGIMEN RESTARTED THIS SHIFT. ECHO ORDERED. PT NOW MEDICAL WITH TELE STATUS. CURRENTLY LYING IN BED WATCHING TELEVISION. BED IN LOW, CALL LIGHT IN REACH, WILL REPORT TO ONCOMING RN.
[2023-07-13 20:47] VITALS: BP 126/98
[2023-07-14 04:55] VITALS: BP 132/91
--- NOTE | 2023-07-14 05:06 | NUR ---
SHIFT SUMMARY. PT HAS BEEN DOING WELL THROUGHOUT SHIFT, NO ACUTE CHANGES. REMAINS AOX4, PLEASANT, COOPERATIVE WITH CARE. CALLS APPROPRIATELY FOR ASSISTANCEAND ABLE TO MAKE NEEDS KNOWN. REMAINS INDEPENDENT WITHIN ROOM. PAIN HAS BEEN ADEQUATELY MANAGED VIA EMAR. TELE ON THROUGHOUT SHIFT, NO EVENTS THUS FAR THIS SHIFT. GOOD PO INTAKE. VITALS HAVE REMAINED STABLE. BED LOCKED IN LOWEST POSITION. CALL LIGHT LEFT WITHIN REACH.
[2023-07-14 05:14] LABS: Albumin, Blood 2.3 g/dL (3.4-5.0); Anion Gap 6 mmol/L (6-16); Blood Urea Nitrogen 32 mg/dL (8-24); Bun/Creatinine Ratio 21.2 (12.0-20.0); CO2, Blood 27 mmol/L (21-32); Calcium, Blood 8.7 mg/dL (8.5-10.1); Chloride, Blood 106 mmol/L (98-108); Creatinine, Blood 1.51 mg/dL (0.60-1.20); Glomerular Filtration Rate 57 (60-); Glucose, Blood 109 mg/dL (70-99); Magnesium, Blood 1.9 mg/dL (1.6-2.4); Potassium, Blood 3.8 mmol/L (3.5-5.5); Sodium, Blood 139 mmol/L (136-145)
[2023-07-14 07:19] VITALS: BP 159/110
--- NOTE | 2023-07-14 09:09 | NUR ---
UPDATE: RECEIVED CALL FROM SENIOR [employer]AD[employer] DEVELOPER ASKING TO VERIFY PT XARELTO COMPLIANCE. PT STATES HE TAKES MED EVERYDAY. HOWEVER MEDICATION HAS NOT BEEN FILLED SINCE MAR 2023. SENIOR TERAD[employer] DEVELOPER UPDATED.
--- NOTE | 2023-07-14 17:07 | NUR ---
SHIFT SUMMARY: PT REMAINS ALERT AND ORIENTED X4, ABLE TO FOLLOW COMMANDS AND MAKE NEEDS KNOWN. BP AND HR STABLE. AFEBRILE. SPO2 >94% ON ROOM AIR. RESPIRATIONS EVEN AND UNLABORED. PULSES STRONG AND EQUAL THROUGHOUT. PT DIURESED WELL THIS SHIFT, APPROX 700ML OUT. NO BM. ECHO COMPLETED. PLAN FOR POSSIBLE DISCHARGE IN AM. PT CURRENTLY SITTING IN BED EATING DINNER. BED IN LOW, CALL LIGHT IN REACH, WILL REPORT TO ONCOMING AMY
[2023-07-14 19:54] VITALS: BP 118/80
[2023-07-15 02:25] LABS: Bun/Creatinine Ratio 18.5 (12.0-20.0); Creatinine, Blood 1.57 mg/dL (0.60-1.20); Potassium, Blood 4.1 mmol/L (3.5-5.5)
[2023-07-15 04:11] VITALS: BP 121/71
--- NOTE | 2023-07-15 04:37 | NUR ---
SHIFT SUMMARY A/Ox4 AND MOSTLY COOPERATIVE WITH CARE. ANSWERS QUESTIONS APPROPRIATELY AND ABLE TO MAKE HIS NEEDS KNOWN. CONTINUES TO PRESENT WITH FLAT AFFECT. CARDIAC, REMAINS IN SR 70-80'S WITH NO REPORT OF CP OR PRESSURE DURING THE NIGHT. SBP HAS BEEN STABLE RANGING 110-120'S. RESPIRATORY, MAINTAINS SPO2 >90% ON RA. DENIES SOB OR DYSPNEA AT REST. CONTINUES TO PRESENT WITH SOME EXERTIONAL DYSPNA HOWEVER. GI/, ABLE TO INDEPENDENTLY ABULATE INTO THE BATHROOM TO VOID YELLOW COLORED URINE. POSSIBE D/C THIS AM. NO NEW ORDERS AT THIS TIME, WILL REPORT TO ONCOMING RN. REGINE PATEL OF THIS NOTE.
[2023-07-15 07:53] VITALS: BP 137/107
--- NOTE | 2023-07-15 10:59 | NUR ---
UPDATE PT REMAINS ALERT AND ORIENTED. VS STABLE. PT COMPLAINS OF PAIN TO RIGHT ANKLE FROM FALL PRIOR TO ADMISSION TO HOSPITAL. INSTRUCTIONAL SERVICES SPECIALIST IN THIS AM WITH OK FOR DISCHARGE HOME. PT UP TO SHOWER INDEPENDENTLY. WILL CONTINUE TO MONITOR
--- NOTE | 2023-07-15 14:00 | NUR ---
UPDATE DISCHARGE INSTRUCTIONS PROVIDED TO PT. PT EDUCATED ON ALL NEW MEDICATIONS AND MEDICATION CHANGES. ALL QUESTIONS ANSWERED. CARE MANAGEMENT FACILITATING A RIDE HOME FOR THE PT. PT TO BE TAKEN OUT BY WC.
== END 2023-07-15 14:35 | disposition home or self-care (01) | DRG 280 ==
LOC: ER 08:32 → PCU 11:50
PROVIDERS: Emergency Medicine; Student in an Organized Health Care Education/Training Program; ADMIT Internal Medicine
DX: I13.0 Hypertensive heart and chronic kidney disease with heart failure and stage 1 through stage 4 chronic kidney disease, or unspecified chronic kidney disease (principal); I50.23 Acute on chronic systolic (congestive) heart failure; I21.A1 Myocardial infarction type 2; J96.11 Chronic respiratory failure with hypoxia; I42.8 Other cardiomyopathies; I42.7 Cardiomyopathy due to drug and external agent; R05.8 Other specified cough; I51.3 Intracardiac thrombosis, not elsewhere classified; N18.30 Chronic kidney disease, stage 3 unspecified; F15.10 Other stimulant abuse, uncomplicated; Z11.52 Encounter for screening for COVID-19; T43.651A Poisoning by methamphetamines accidental (unintentional), initial encounter; Z79.01 Long term (current) use of anticoagulants; Z88.8 Allergy status to other drugs, medicaments and biological substances; Z91.199 Patient's noncompliance with other medical treatment and regimen due to unspecified reason; Z88.6 Allergy status to analgesic agent; Z88.5 Allergy status to narcotic agent; Z71.51 Drug abuse counseling and surveillance of drug abuser
CPT/HCPCS: 0202U; 36415; 71045; 73610; 80048; 80053; 80069; 83735; 83880; 84484; 85025; 85027; 93005; 93010; 99285-25; A9270; C8929; J0360; J1940; Q9957

== ENCOUNTER 2023-12-23 23:43 | Emergency (ER) | payer OTHER ==
[~2023-12-23] VITALS: Ht 170.2 cm; Wt 90.7 kg
[~2023-12-23 23:43] MED LIST changes: +ATOR40TA PO; +LOSA25 PO; -LOSA50 PO; +METO25ER PO; +TORSE20 PO
[2023-12-24 00:38] LABS: BASOPHILS ABSOLUTE AUTO 0.05 K/mm3 (0.00-0.23); BASOPHILS PERCENT AUTO 1 % (0-2); EOSINOPHILS ABSOLUTE AUTO 0.14 K/mm3 (0.00-0.68); EOSINOPHILS PERCENT AUTO 1 % (0-6); Hematocrit 49.5 % (37.0-53.0); Hemoglobin 15.7 g/dL (13.5-17.5); IMMATURE GRAN ABSOLUTE AUTO 0.03 K/mm3 (0.00-0.10); IMMATURE GRAN PERCENT AUTO 0 % (0-1); LYMPHOCYTES ABSOLUTE AUTO 1.84 K/mm3 (0.84-5.20); LYMPHOCYTES PERCENT AUTO 18 % (21-46); MONOCYTES ABSOLUTE AUTO 0.75 K/mm3 (0.16-1.47); MONOCYTES PERCENT AUTO 7 % (4-13); Mean Corpuscular HGB 27.5 pg (26.0-34.0); Mean Corpuscular HGB Conc 31.7 g/dL (31.5-36.5); Mean Corpuscular Volume 87 fL (80-100); NEUTROPHILS ABSOLUTE AUTO 7.39 K/mm3 (1.96-9.15); NEUTROPHILS PERCENT AUTO 72 % (41-73); NRBC ABSOLUTE 0.09 K/mm3 (0.00-0.02); NRBC Auto 0.9 /100 WBC (0.0-0.2); Platelet Count 233 K/mm3 (150-400); RDW Coefficient Variation 19.5 % (11.7-14.2); Red Blood Cell Count 5.71 M/mm3 (4.30-5.90)
[2023-12-24 00:57] LABS: Albumin, Blood 2.5 g/dL (3.4-5.0); Albumin/Globulin Ratio 0.7 (0.8-1.8); Bilirubin, Total 1.9 mg/dL (0.1-1.0); Bun/Creatinine Ratio 22.7 (12.0-20.0); Calcium, Blood 8.4 mg/dL (8.5-10.1); Creatinine, Blood 1.41 mg/dL (0.60-1.20); Globulin, Blood 3.6 g/dL (2.2-4.0); Potassium, Blood 5.1 mmol/L (3.5-5.5); Total Protein, Blood 6.1 g/dL (6.4-8.2)
[2023-12-24 01:45] VITALS: BP 144/120
== END 2023-12-24 02:15 | disposition home or self-care (01) ==
LOC: ER 23:43
PROVIDERS: Emergency Medicine
DX: N32.89 Other specified disorders of bladder (principal); I13.0 Hypertensive heart and chronic kidney disease with heart failure and stage 1 through stage 4 chronic kidney disease, or unspecified chronic kidney disease; I50.22 Chronic systolic (congestive) heart failure; N18.30 Chronic kidney disease, stage 3 unspecified; Z79.899 Other long term (current) drug therapy; Z88.8 Allergy status to other drugs, medicaments and biological substances; Z88.5 Allergy status to narcotic agent; Z88.6 Allergy status to analgesic agent; Z88.1 Allergy status to other antibiotic agents
CPT/HCPCS: 71046; 80053; 83880; 84484; 85025; 93005; 93010; 99285-25

== ENCOUNTER 2024-01-09 16:30 | Emergency (ER) | payer OTHER ==
[~2024-01-09] VITALS: Ht 170.2 cm; Wt 88.5 kg
[2024-01-09 16:48] LABS: BASOPHILS PERCENT AUTO 1 % (0-2); EOSINOPHILS ABSOLUTE AUTO 0.13 K/mm3 (0.00-0.68); EOSINOPHILS PERCENT AUTO 2 % (0-6); Hematocrit 49.3 % (37.0-53.0); Hemoglobin 15.6 g/dL (13.5-17.5); IMMATURE GRAN ABSOLUTE AUTO 0.02 K/mm3 (0.00-0.10); IMMATURE GRAN PERCENT AUTO 0 % (0-1); LYMPHOCYTES ABSOLUTE AUTO 1.74 K/mm3 (0.84-5.20); LYMPHOCYTES PERCENT AUTO 22 % (21-46); MONOCYTES ABSOLUTE AUTO 0.62 K/mm3 (0.16-1.47); MONOCYTES PERCENT AUTO 8 % (4-13); Mean Corpuscular HGB 28.2 pg (26.0-34.0); Mean Corpuscular HGB Conc 31.6 g/dL (31.5-36.5); Mean Corpuscular Volume 89 fL (80-100); Mean Platelet Volume 10.3 fL (9.1-12.4); NEUTROPHILS PERCENT AUTO 67 % (41-73); NRBC ABSOLUTE 0.03 K/mm3 (0.00-0.02); NRBC Auto 0.4 /100 WBC (0.0-0.2); Platelet Count 261 K/mm3 (150-400); RDW Coefficient Variation 18.9 % (11.7-14.2); RDW Standard Deviation 60.1 fL (35.1-46.3); Red Blood Cell Count 5.54 M/mm3 (4.30-5.90); White Blood Cell Count 7.91 K/mm3 (4.00-11.30)
[2024-01-09 17:13] LABS: Albumin, Blood 2.8 g/dL (3.4-5.0); Albumin/Globulin Ratio 0.8 (0.8-1.8); Bilirubin, Total 1.1 mg/dL (0.1-1.0); Bun/Creatinine Ratio 14.1 (12.0-20.0); Calcium, Blood 8.3 mg/dL (8.5-10.1); Creatinine, Blood 1.77 mg/dL (0.60-1.20); Globulin, Blood 3.4 g/dL (2.2-4.0); Potassium, Blood 4.1 mmol/L (3.5-5.5); Total Protein, Blood 6.2 g/dL (6.4-8.2)
[2024-01-09] MEDS ORDERED: Furosemide 10 MG/ML 10ML Vial IV ONE (18:05)
[2024-01-09] MEDS ORDERED: Cefuroxime Axetil 250 MG Tab PO ONE (21:10)
[2024-01-09] MEDS ORDERED: TORSE20 PO (21:18)
[2024-01-09] MEDS ORDERED: CEFU500T30 PO (21:19)
[2024-01-09 21:25] VITALS: BP 122/79
== END 2024-01-09 21:27 ==
LOC: ER 16:30
PROVIDERS: Physician Assistant
DX: I13.0 Hypertensive heart and chronic kidney disease with heart failure and stage 1 through stage 4 chronic kidney disease, or unspecified chronic kidney disease (principal); I50.22 Chronic systolic (congestive) heart failure; N18.30 Chronic kidney disease, stage 3 unspecified; L03.311 Cellulitis of abdominal wall; Z88.8 Allergy status to other drugs, medicaments and biological substances; Z88.5 Allergy status to narcotic agent; Z88.6 Allergy status to analgesic agent; Z79.899 Other long term (current) drug therapy
CPT/HCPCS: 71046; 80053; 83880; 85025; 96374; 99285-25; A9270; J1940